=== PATIENT | male | born 1945 | race Caucasian/White ===

== ENCOUNTER 2019-07-02 05:10 | Inpatient (IN) | payer MEDICARE, OTHER, SELFPAY ==
[2019-07-02] VITALS (37 sets, daily range): BP systolic 92–152; BP diastolic 53–112; PULSE 49–90; RESP 8–22; TEMP 36.3–37.1; O2SAT 94–100; BMI 24.0; BMI 23.3
--- NOTE | 2019-07-02 05:18 | EKG12_ITS ---
Test Reason : DYSRHYTHMIA Blood Pressure : / mmHG Vent. Rate : 061 BPM Atrial Rate : 061 BPM P-R Int : 168 ms QRS Dur : 110 ms QT Int : 434 ms P-R-T Axes : -02 -36 051 degrees QTc Int : 436 ms Normal sinus rhythm Left axis deviation Septal infarct , age undetermined Abnormal ECG Confirmed by RICO CROOK, LUZ ([id number]), graphic editor CHRISTEL BELTRE ([id number]) on 07/04/2019 10:30:54 AM Referred By: BB Confirmed By:LUZ GÓMEZ MD
--- NOTE | 2019-07-02 05:18 | RAD_ITS ---
HISTORY: c/o pain across both scapulas nki ADDITIONAL HISTORY: None provided. TECHNIQUE: Frontal chest radiograph. Number of images including paperwork: 1 COMPARISON: 05/02/2016 FINDINGS: LUNGS AND PLEURA: No dense consolidation. Mild interstitial prominence appears similar. No focal consolidation. 7 mm nodular density projects over the right anterior sixth rib near the intersection with a posterior ninth rib. CARDIAC SILHOUETTE: Unremarkable. MEDIASTINUM AND MAIK: Aortic tortuosity. UPPER ABDOMEN: Unremarkable. SKELETON AND SOFT TISSUES: No acute findings. OTHER DEVICES AND HARDWARE: None. RAD/Chest 1 View (Portable) IMPRESSION: No acute cardiopulmonary abnormality. Right lung nodular density may be related to the lung nodule or superimposition. Recommend nonemergent follow-up PA and shallow oblique radiographs for further evaluation. at 0550 Reported and signed by: Andie Christensen MD Electronically Signed: Andie Christensen MD at 5:49 EDT Tel , Service support ,
--- NOTE | 2019-07-02 05:19 | ED.DCSUM_ITS ---
History of Present Illness Chief Complaint: General Illness Detail of Chief Complaint: chest/back pain Informant: Patient, EMS Onset: Hours - 1.5-2 Activity at onset: Sleep - woke him up Timing: Continuous Quality: Aching, Dull Location: Left Chest - Noticed just within the last 30 minutes, - - Initially pain across his upper back/shoulder blades and into both upper arms, worse on the left Current Severity: Mild Maximum Severity: Moderate Worsened By: Nothing. Not Worsened By: Breathing, Coughing Relieved By: - - Better now than it was, he took aspirin 650 mg, unknown if that was the cause of improvement or not Associated Symptoms: Diaphoresis, Lightheadedness - Without near syncope or syncope. Negative for: Nausea, Vomiting, Dyspnea, Cough, Fever, Acid Reflux, Palpitations Narrative: Healthy 74-year-old presenting with discomfort across his upper back and into both upper arms, no worse with moving his arms or chest/torso around. He woke up in a cold sweat as well, and felt relatively poorly. He takes a baby aspirin a day, as a result of waking up with the symptoms he took 2 full aspirins for a total of 650 mg. He called EMS. They transmitted an EKG and transported him to the emergency department where he is feeling improved but the symptoms are still present and he now has discomfort in his left chest as well as the aforementioned areas. He had a stress test years ago that was negative. No known history of heart disease. He is a former smoker, has been a non-smoker for over 50 years. Prior Similar Symptoms: No Recent Illness/Hospitalization: No CVD Risk Factors: Hypercholesterolemia. Negative for: Hypertension, Diabetes, Family History 1' </=55, Smoking PE Risk Factors: Negative for: Recent Travel/Surgery, Recenet Immobilization, Prior DVT or PE, Cancer, OCP + Smoking + >/=35 - Past Medical History (1) Hyperlipidemia Status: Chronic (2) Seasonal allergies Status: Chronic Past Medical History - Allergies and Home Meds Allergies/Adverse Reactions: Allergies amoxicillin Adverse Reaction (Verified 07/02/19 05:11) Rash Primary Care Physician: Luciano Mcfadden [Primary Care Provider] - Lives: Spouse/ Significant Other Smoking Status: Former smoker Drugs: None Review of Systems General: Reports: Malaise, Sweats. Denies: Chills, Fever Eyes: Denies: Visual changes - bilaterally, Diplopia ENT: Denies: Bilateral ear pain, Rhinorrhea, Sore throat Cardiovascular: Reports: Chest pain. Denies: Palpitations Respiratory: Denies: Dyspnea, Cough, Dyspnea on exertion Gastrointestinal: Denies: Abdominal pain, Nausea, Vomiting, Diarrhea, Melena, Hematochezia Genitourinary: Denies: Dysuria, Hematuria, Frequency Musculoskeletal: Reports: Back pain, Extremity Pain. Denies: Neck pain, Swelling Skin: Denies: Rash, Wounds Neurological: Denies: Headache, Weakness, Numbness Physical Exam Vital Signs/Narrative: Vital Signs Temp Pulse Resp BP Pulse Ox 07/02/19 05:19 57 L 152/74 H 07/02/19 05:12 97.4 F L 73 14 146/112 H 97 Inital Vital Signs reviewed: Yes General: Well nourished, Well developed, No Acute Distress Head: Normocephalic, Atraumatic Eyes: Perrl, EOMI ENT: Moist mucous membranes, No rhinorrhea Neck: Supple, Nontender, No lymphadenopathy, No JVD Cardiovascular: Regular rate, Regular rhythm - With occasional ectopy, No murmurs, Normal S1, Normal S2 Respiratory: No distress, CTA bilaterally, Chest nontender Abdomen: Soft, Nontender, Nondistended, Normal bowel sounds Back: Nontender, Normal Inspection Extremities: Nontender, No edema. Negative for: Calf Tenderness Skin: Normal color, No rash, No Trauma Neurological: Alert, Oriented x3, Cranial nerves II-XII grossly intact, Normal Strength, Normal Sensation Psychological: Normal affect, Normal Mood Diagnostic/Tx/Re-eval Impressions Chest X-Ray 07/02/19 05:18 IMPRESSION: No acute cardiopulmonary abnormality. Right lung nodular density may be related to the lung nodule or superimposition. Recommend nonemergent follow-up PA and shallow oblique radiographs for further evaluation. at 0550 Reported and signed by: Andie Christensen MD Electronically Signed: Andie Christensen MD at 5:49 EDT Tel , Service support , 04/14/20 05:18 Chest 1 View (Portable) [RAD] Stat Laboratory Results 07/02/19 07/02/19 07/02/19 06:35 06:35 06:35 WBC 7.4 Corrected WBC RBC 4.49 L Hgb 14.0 Hct 42.1 MCV 93.8 MCH 31.2 MCHC 33.3 RDW Std Deviation 42.5 RDW Coeff of Felicity 12.3 Plt Count 151 MPV 9.4 Immature Gran % (Auto) 0.500 Neut % (Auto) 82.9 H Lymph % (Auto) 10.1 L Pope % (Auto) 5.0 Eos % (Auto) 1.2 Baso % (Auto) 0.3 Absolute Neuts (auto) 6.1 Absolute Lymphs (auto) 0.75 L Total Counted Neutrophils % (Manual) Band Neutrophils % Lymphocytes % (Manual) Monocytes % (Manual) Eosinophils % (Manual) Basophils % (Manual) Metamyelocytes % Myelocytes % Promyelocytes % Blast Cells % Plasma Cell % (Manual) Other Cells % Nucleated RBC % 0 Nucleated RBCs/100 WBC Differential Comment Diff Path Review Hypersegmented Neuts Atypical Lymphocytes Reactive Lymphocytes Smudge Cells Toxic Granulation Toxic Vacuolation Dohle Bodies Sachin Rods Platelet Estimate Plt Morphology Comment RBC Morphology Polychromasia Hypochromasia Poikilocytosis Basophilic Stippling Anisocytosis Microcytosis Macrocytosis Spherocytes Sickle Cells Target Cells Tear Drop Cells Ovalocytes Stomatocytes Ness-Emerson Bodies [place] Cells Bite Cells Crenated Cell Acanthocytes (Spur) Rouleaux Schistocytes APTT 28.3 Sodium 140 Potassium 3.9 Chloride 110 H Carbon Dioxide 25.0 Anion Gap 5 BUN 17 Creatinine 0.88 Estim Creat Clear Calc 76.06 Est GFR (MDRD) Af Amer 108 Est GFR (MDRD) Non-Af 90 BUN/Creatinine Ratio 19.3 Glucose 140 H Calcium 8.6 Troponin I 0.572 H - Rhythm Strip Rhythm Strip: Sinus Rhythm Rate: 60 Ectopy: PAC(s) - EKG EMS EKG Interpretation: Sinus Rhythm, S-T Elevation - 1 mm V1 only with J-point elevation, S-T Depression - 0.5-1 mm V5-V6 only, - - left axis Initial EKG Interpretation: Sinus Rhythm, S-T Elevation - 1 mm V1 only, - - LAD. ST depressions resolved c/w EMS EKG. Prior: No Prior - before today Treatment: Aspirin - taken [employer], Heparin IV, NTG SL, NTG Topical Repeat Eval: 03/29 MARCELLUS Risk: Age >/= 65, ASA within 7 days, Elevated Enzymes, ST Deviation >/= 0.5mm Score: 4 - Medical Decision Making Patient was improved but still symptomatic. He was given a series of 3 nitroglycerin, he had significant improvement down to a 4/10. He stated that the right arm discomfort resolved. All the other symptoms severity diminished. Nitroglycerin paste was placed on his chest, and on reevaluation and another half an hour, his pain was barely noticeable, 03/29. There was some delay due to the first 2 blood samples appearing very diluted according to the catheterization laboratory technician after running the analyzer on them, so it was drawn a third time. His troponin returned elevated at 0.57, and in context of his concerning history this morning, consistent with unstable angina. His EKG is not consistent with a STEMI. We were able to obtain an old EKG through a different computer system, showing none of the ST segment deviations he had this morning, and a normal axis. Today he has a left axis. I discussed with Dr. Cheung with cardiology, who advises starting him on a heparin drip without bolus, loading him with Brilinta 180 mg, and keeping him n.p.o. for likely heart catheterization a little later this morning. Discussed with the patient he is feeling much better, appears clinically and hemodynamically stable with blood pressure currently 101/62, he is mildly bradycardic at 49-50, tolerating it well, IV fluids are going at a gentle rate. Critical care time (excluding procedures): 30-74 minutes - 30 minutes, including time spent discussing with patient and family, consultants, and arranging admission, performing direct patient care at bedside ED Disposition - Plan for ED Patient: Disposition: Acute Care Hospital [facility] Diagnosis: Acute coronary syndrome Referrals: Luciano Mcfadden [Primary Care Provider] -
[2019-07-02] MEDS: 0.9% Normal Saline 1,000 ML 150 ML IV ×2 (05:31→10:47)
[2019-07-02] MEDS: Nitroglycerin SL (ED/IMG/CATH) 0.4 MG TABLET SUBLINGUAL ×3 (05:33→05:44)
[2019-07-02 06:42] LABS: Absolute Lymphocyte Count 0.75 X10^3/uL (0.83-4.51); Absolute Neutrophil Count 6.1 X10^3/uL (2.0-7.7); Basophil# 0.02 X10^3/uL; Basophil% 0.3 % (0-1); Eosinophil# 0.09 X10^3/uL; Eosinophils% 1.2 % (0-5); Hematocrit 42.1 % (40-54); Lymphocyte # 0.75 X10^3/ul (4.0); Lymphocyte % 10.1 % (19-41); Mean Corp Hgb Conc 33.3 g/dL (32-36); Mean Corpuscular Hgb 31.2 pg (27.0-32.0); Mean Corpuscular Volume 93.8 fL (80-94); Mean Platelet Vol. 9.4 fl (6.2-12.0); Monocyte# 0.37 X10^3/uL; NRBC Flagged by Analyzer 0 % (0-5); Neutrophil # 6.14 X10^3/uL (2.7-7.7); Neutrophil % 82.9 % (47-70); Platelet Count 151 K/mm3 (150-450); RBC Distribution Width CV 12.3 % (11.6-14.6); RBC Distribution Width SD 42.5 fl (35.1-43.9); Red Blood Count 4.49 M/mm3 (4.6-6.2); White Blood Count 7.4 K/mm3 (4.4-11.0)
[2019-07-02 06:51] LABS: Partial Thromboplast Time 28.3 Seconds (24.1-36.2)
[2019-07-02 06:59] LABS: Anion Gap 5 (5-15); BUN 17 mg/dL (7-18); BUN/Creat Ratio 19.3 RATIO (10-20); Calcium,Total 8.6 mg/dL (8.5-10.1); Chloride 110 mmol/L (98-107); Creatinine, Serum 0.88 mg/dL (0.70-1.30); EST Glomerular Filtration Rate 90 mL/min (>60); Est Glom Filt Rate - Afr Amer 108 mL/min (>60); Estimated Creatinine Clearance 76.06 ml/min; Glucose 140 mg/dL (74-106); Potassium 3.9 mmol/L (3.5-5.1); Sodium Level 140 mmol/L (136-145)
[2019-07-02] MEDS: Nitroglycerin Oint 1 INCH PACKET 0.5 INCH TRANSDERM. (06:59)
--- NOTE | 2019-07-02 07:00 | ED.RN ---
dr minaya aware of pt's decrease in bp after nitro dose. okay to give nitrobid.
[2019-07-02] MEDS: HEPARIN/D5w 25,000 UNITS 25,000 UNITS/250 ML IV.SOLN. 11 UNITS IV (07:42)
[2019-07-02] MEDS: TICAGRELOR 90 MG TABLET 180 MG PO (07:44)
--- NOTE | 2019-07-02 07:52 | PCM.HP.STD ---
Problem List (1) Acute coronary syndrome Status: Acute (2) Hyperlipidemia Status: Chronic (3) Seasonal allergies Status: Chronic History of Present Illness Date of Admission: 07/02/19 Chief Complaint: interscapular pain today The patient is a 74 year old M with no significant medical history except dyslipidemia on low-dose of simvastatin came to ED with interscapular pain. This started at 3:30 AM and woke him up. Prior to that patient also had headache at midnight as per triage note. This was not associated with shortness of breath, diaphoresis, syncope but patient had acute dizziness during pain. His pain got little bit better with nitro sublingual given in ER. Patient denies prior history of SC or coronary artery disease. In ED, EMS EKG shows slight ST depression V4 to V6 and [address]VL and mild ST elevation in lead V1. This almost resolved in EKG done in ER. EKG normal sinus rhythm with LAD at 61 bpm. Previous EKG of March 2004 normal sinus rhythm. Basic labs done in ER shows troponin 0 0.572, glucose 140. K normal 3.9. Chest x-ray reported no acute cardiopulmonary abnormality. He also reports 7 mm nodular density over right anterior sixth rib near intersection with posterior ninth rib, unclear lung nodule or superimposition. 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 Maternal History Items: Cancer - Skin cancer Review of Systems Constitutional: Denies: Chills, Fever, Weight Change HEENT: Denies: Head Aches, Sinus Congestion, Sinus Drainage Cardiovascular: Reports: Light Headedness, - - Intrascapular pain. Denies: Chest Pain, Chest Pressure, Chest Tightness, Palpitations Respiratory: Denies: Cough, Shortness of breath at rest, Sputum production Gastrointestinal: Denies: Abdominal Pain, Nausea, Vomiting Genitourinary: Denies: Dysuria Musculoskeletal: Denies: Joint Pain, Joint Tenderness Skin: Denies: Rash, Wounds Neurological: Denies: Numbness, Tingling, Focal weakness Psychiatric: Denies: Anxiety, Depression, Homicidal Ideations, Suicidal Ideations Hematologic/ Lymphatic: Denies: Easy Bruising, Easy Bleeding VTE Information - Inpt Only VTE Present on Admission: No VTE Mechan Device Prophylaxis: None VTE Pharm Prophylaxis ordered?: No Reason prophylaxis not ordered:: Procedure Not Indicated - On therapeutic IV heparin drip Patient Problems: Active and Suspected Problems Acute coronary syndrome (Acute) - Physical Exam Vitals/I&O's: Vital Signs Temp Pulse Resp BP Pulse Ox 98.0 F 55 L 14 103/64 96 07/02/19 07:46 07/02/19 07:46 07/02/19 07:46 07/02/19 07:46 07/02/19 07:46 Oxygen Flow Rate (L/min) 2 Oxygen Delivery Method Nasal Cannula Weight: 171 lb 15.369 oz Body Mass Index (BMI) 24.0 General: Alert, Oriented x3, Cooperative HEENT: Atraumatic, PERRLA, EOMI, Normocephalic Oral: No Gingival or Mucosal Lesions/ Ulcerations, Dry Mucosa Neck: Supple, No JVD, Negative Carotid Bruits Lungs: Clear to auscultation, Normal air movement, No rhonchi, No wheeze, No rales Cardiovascular: Regular rate, Regular Rhythm, Normal S1, Normal S2, No murmurs Abdomen: Bowel Sounds Present, Soft, Non Tender, Non-Distended Extremities: No edema, Capillary Refill Less than 3 Seconds Skin: No rashes, No breakdown Musculoskeletal: No Tenderness to Palpation of Joints or Extremities Neurological: Cranial nerves II-XII grossly intact, Deep Tendon Reflexes 2+/4 and Symmetrical, Neuro grossly intact, Motor Exam 5/5 strength throughout Psych/Mental Status: Normal Affect, Appropriate Laboratory Results 07/02/19 05:25: WBC Cancelled, Corrected WBC Cancelled, RBC Cancelled, Hgb Cancelled, Hct Cancelled, MCV Cancelled, MCH Cancelled, MCHC Cancelled, RDW Std Deviation Cancelled, RDW Coeff of Felicity Cancelled, Plt Count Cancelled, MPV Cancelled, Immature Gran % (Auto) Cancelled, Neut % (Auto) Cancelled, Lymph % (Auto) Cancelled, [place] % (Auto) Cancelled, Eos % (Auto) Cancelled, Baso % (Auto) Cancelled, Absolute Neuts (auto) Cancelled, Absolute Lymphs (auto) Cancelled, Total Counted Cancelled, Neutrophils % (Manual) Cancelled, Band Neutrophils % Cancelled, Lymphocytes % (Manual) Cancelled, Monocytes % (Manual) Cancelled, Eosinophils % (Manual) Cancelled, Basophils % (Manual) Cancelled, Metamyelocytes % Cancelled, Myelocytes % Cancelled, Promyelocytes % Cancelled, Blast Cells % Cancelled, Plasma Cell % (Manual) Cancelled, Other Cells % Cancelled, Nucleated RBC % Cancelled, Nucleated RBCs/100 WBC Cancelled, Differential Comment Cancelled, Diff Path Review Cancelled, Hypersegmented Neuts Cancelled, Atypical Lymphocytes Cancelled, Reactive Lymphocytes Cancelled, Smudge Cells Cancelled, Toxic Granulation Cancelled, Toxic Vacuolation Cancelled, Dohle Bodies Cancelled, Sachin Rods Cancelled, Platelet Estimate Cancelled, Plt Morphology Comment Cancelled, RBC Morphology Cancelled, Polychromasia Cancelled, Hypochromasia Cancelled, Poikilocytosis Cancelled, Basophilic Stippling Cancelled, Anisocytosis Cancelled, Microcytosis Cancelled, Macrocytosis Cancelled, Spherocytes Cancelled, Sickle Cells Cancelled, Target Cells Cancelled, Tear Drop Cells Cancelled, Ovalocytes Cancelled, Stomatocytes Cancelled, Ness-[place] Bodies Cancelled, [place] Cells Cancelled, Bite Cells Cancelled, Crenated Cell Cancelled, Acanthocytes (Spur) Cancelled, Rouleaux Cancelled, Schistocytes Cancelled 07/02/19 05:25: Sodium Cancelled, Potassium Cancelled, Chloride Cancelled, Carbon Dioxide Cancelled, Anion Gap Cancelled, BUN Cancelled, Creatinine Cancelled, Estim Creat Clear Calc Cancelled, Est GFR (MDRD) Af Amer Cancelled, Est GFR (MDRD) Non-Af Cancelled, BUN/Creatinine Ratio Cancelled, Glucose Cancelled, Calcium Cancelled, Troponin I Cancelled 07/02/19 05:25: APTT Cancelled 07/02/19 05:50: WBC Cancelled, Corrected WBC Cancelled, RBC Cancelled, Hgb Cancelled, Hct Cancelled, MCV Cancelled, MCH Cancelled, MCHC Cancelled, RDW Std Deviation Cancelled, RDW Coeff of Felicity Cancelled, Plt Count Cancelled, MPV Cancelled, Immature Gran % (Auto) Cancelled, Neut % (Auto) Cancelled, Lymph % (Auto) Cancelled, [place] % (Auto) Cancelled, Eos % (Auto) Cancelled, Baso % (Auto) Cancelled, Absolute Neuts (auto) Cancelled, Absolute Lymphs (auto) Cancelled, Total Counted Cancelled, Neutrophils % (Manual) Cancelled, Band Neutrophils % Cancelled, Lymphocytes % (Manual) Cancelled, Monocytes % (Manual) Cancelled, Eosinophils % (Manual) Cancelled, Basophils % (Manual) Cancelled, Metamyelocytes % Cancelled, Myelocytes % Cancelled, Promyelocytes % Cancelled, Blast Cells % Cancelled, Plasma Cell % (Manual) Cancelled, Other Cells % Cancelled, Nucleated RBC % Cancelled, Nucleated RBCs/100 WBC Cancelled, Differential Comment Cancelled, Diff Path Review Cancelled, Hypersegmented Neuts Cancelled, Atypical Lymphocytes Cancelled, Reactive Lymphocytes Cancelled, Smudge Cells Cancelled, Toxic Granulation Cancelled, Toxic Vacuolation Cancelled, Dohle Bodies Cancelled, Sachin Rods Cancelled, Platelet Estimate Cancelled, Plt Morphology Comment Cancelled, RBC Morphology Cancelled, Polychromasia Cancelled, Hypochromasia Cancelled, Poikilocytosis Cancelled, Basophilic Stippling Cancelled, Anisocytosis Cancelled, Microcytosis Cancelled, Macrocytosis Cancelled, Spherocytes Cancelled, Sickle Cells Cancelled, Target Cells Cancelled, Tear Drop Cells Cancelled, Ovalocytes Cancelled, Stomatocytes Cancelled, Ness-[place] Bodies Cancelled, [place] Cells Cancelled, Bite Cells Cancelled, Crenated Cell Cancelled, Acanthocytes (Spur) Cancelled, Rouleaux Cancelled, Schistocytes Cancelled 07/02/19 05:50: APTT Cancelled 07/02/19 05:50: Sodium Cancelled, Potassium Cancelled, Chloride Cancelled, Carbon Dioxide Cancelled, Anion Gap Cancelled, BUN Cancelled, Creatinine Cancelled, Estim Creat Clear Calc Cancelled, Est GFR (MDRD) Af Amer Cancelled, Est GFR (MDRD) Non-Af Cancelled, BUN/Creatinine Ratio Cancelled, Glucose Cancelled, Calcium Cancelled, Troponin I Cancelled 07/02/19 06:35: Sodium 140, Potassium 3.9, Chloride 110 H, Carbon Dioxide 25.0, Anion Gap 5, BUN 17, Creatinine 0.88, Estim Creat Clear Calc 76.06, Est GFR (MDRD) Af Amer 108, Est GFR (MDRD) Non-Af 90, BUN/Creatinine Ratio 19.3, Glucose 140 H, Calcium 8.6, Troponin I 0.572 H 07/02/19 06:35: WBC 7.4, RBC 4.49 L, Hgb 14.0, Hct 42.1, MCV 93.8, MCH 31.2, MCHC 33.3, RDW Std Deviation 42.5, RDW Coeff of Felicity 12.3, Plt Count 151, MPV 9.4, Immature Gran % (Auto) 0.500, Neut % (Auto) 82.9 H, Lymph % (Auto) 10.1 L, [place] % (Auto) 5.0, Eos % (Auto) 1.2, Baso % (Auto) 0.3, Absolute Neuts (auto) 6.1, Absolute Lymphs (auto) 0.75 L, Nucleated RBC % 0 07/02/19 06:35: APTT 28.3 Current Medications Heparin Sodium (Porcine) (Heparin Na) 0 unit IV UD PRN; Protocol Sodium Chloride () 1,000 mls @ 150 mls/hr IV .[id number] [facility] Last Admin: 07/02/19 05:31 Dose: 150 mls/hr Documented by: Heparin Sodium/Dextrose () 25,000 units in 250 mls @ 11 mls/hr IV .[id number] [facility]; Protocol Last Admin: 07/02/19 07:42 Dose: 1,100 units/hr, 11 mls/hr Documented by: Assessment/Plan All Active Problems Acute coronary syndrome (Acute) The patient is a 74 year old M with no significant medical history except dyslipidemia on low-dose of simvastatin came to ED with interscapular pain. In ED, EMS EKG shows slight ST depression V4 to V6 and 1 in aVL and mild ST elevation in lead V1. This almost resolved in EKG done in ER. EKG normal sinus rhythm with LAD at 61 bpm. Basic labs done in ER shows troponin 0 0.572, glucose 140. K normal 3.9. Chest x-ray reported no acute cardiopulmonary abnormality. 1. Non-STEMI/acute coronary syndrome: Patient is being admitted to PCU on IV heparin drip. Patient had Brilinta 180 mg and aspirin 81 mg daily ordered. Serial troponins. Repeat EKG. Patient is scheduled for cardiac cath today. Started on low-dose of Coreg 3.125 mg twice daily, atorvastatin. Blood pressure is 103/64 therefore not candidate for KAHLIL/ARB. TSH and fasting profile ordered. 2. Suspicion of right lung nodule possible superimposition: Repeat chest x-ray PA and shallow oblique tomorrow a.m. 3. Dyslipidemia: Fasting profile ordered. On atorvastatin 40 mg daily. 4. Seasonal allergy: Controlled. Home medication Nasonex nasal spray continued. DVT prophylaxis: Patient on IV heparin drip. Living will/advanced directive/end of life care: Patient does have living will or advanced directive. After discussion of procedures involved with full code, DNR CC arrest and DNR CC, the patient opted for DNR-CC Arrest Patient does not want artificial life support including intubation, tube feed, ventilator and/chest compression, central venous catheter, vasopressor and DC shock if needed DNR CC arrest; no intubation. Total time spent in [id number] encounter in discussion of advanced directive 16 minutes. [Clinical Impression(s) from Imaging Studies Chest X-Ray 07/02/19 05:18 IMPRESSION: No acute cardiopulmonary abnormality. Right lung nodular density may be related to the lung nodule or superimposition. Recommend nonemergent follow-up PA and shallow oblique radiographs for further evaluation. Inpatient E&M: 51248 Init Hosp L3 Procedures: 94628 Advncd Care Plan 30 Min
--- NOTE | 2019-07-02 08:07 | EKG12_ITS ---
Test Reason : CP ADMISSION Blood Pressure : / mmHG Vent. Rate : 057 BPM Atrial Rate : 057 BPM P-R Int : 174 ms QRS Dur : 098 ms QT Int : 434 ms P-R-T Axes : -06 -44 014 degrees QTc Int : 422 ms Sinus bradycardia Left axis deviation Anteroseptal infarct , possibly acute Abnormal ECG When compared with ECG of 02-JUL-2019 05:18, MANUAL COMPARISON REQUIRED, DATA IS UNCONFIRMED Confirmed by CARLOS ALBERTO HOUSTON ([id number]), market editor CHRISTEL BELTRE ([id number]) on 07/04/2019 10:32:45 AM Referred By: DARREN Confirmed By:CARLOS ALBERTO HOUSTON
[2019-07-02 08:27] LABS: Cholesterol 136 mg/dL (200); High Density Lipoprotein 43 mg/dL; Magnesium 2.3 mg/dL (1.6-2.6); Triglycerides 72 mg/dL; Very Low Density Lipoprotein 14 mg/dL (5-40)
--- NOTE | 2019-07-02 08:39 | PCM.CONS.C ---
Problem List (1) NSTEMI (non-ST elevated myocardial infarction) Status: Acute (2) HLD (hyperlipidemia) Status: Acute Reason for Consult Date of Consultation: 07/02/19 History of Present Illness: The patient is a 74 year old white male with past medical history of hyperlipidemia who presents for evaluation of coronary syndrome/non-ST segment elevation MO. To the best of his knowledge he has no radial vascular history other than his hyperlipidemia. He has been on medical therapy for his hyperlipidemia. He states he was doing well until approximately night. Headache. He states he took a nonsteroidal anti-inflammatory agent and return to sleep. He awoke at 3 AM arm discomfort radiating across his back. He became diaphoretic. Again he took additional nonsteroidal anti-inflammatory agent and attempted to sleep. However he stated the symptoms persisted. He summoned the EMS. ECG was performed which demonstrated sinus rhythm with a possible left anterior fascicular block possible septal MO of in the age, subtle ST segment changes in the lateral distribution. He was treated with nitroglycerin sublingual again some improvement of his symptoms. He subsequently is brought to the emergency department. There he was evaluated and found to have a borderline positive troponin I level. A repeat ECG was formed which demonstrated similar type changes with the exception of his previous subtle ST segment changes appearing to return to baseline. He noted still some residual left arm discomfort. He was again treated with nitroglycerin sublingual and nitroglycerin paste. He had improvement of his symptoms. He underwent radiologic studies with chest x-ray which demonstrated no acute cardiopulmonary findings on preliminary inspection. His laboratory studies were reviewed with no additional acute changes. He was subsequently treated with additional medical therapy with Brilinta and placed on IV heparin (no bolus) with anticipation for cardiovascular referral to the cardiac catheterization laboratory. Upon evaluation he stated he was feeling better although he does recall male having still some residual vague left arm discomfort some intermittent left chest discomfort. He denied any shortness of breath/dyspnea, nausea, or emesis. He has not had any history of orthopnea, PND, peripheral pitting edema. There is been no report of near syncope or syncope. He states he has been otherwise healthy and active. He states he has been remaining home based upon the coronavirus pandemic. He denies any fever, cough, fatigue, etc. this time. [] Past Medical History Allergies/Adverse Reactions: Allergies amoxicillin Allergy (Verified 07/02/19 08:20) Rash Home Medications: Ambulatory Orders Medication Instructions Recorded Aspirin [Aspirin, Baby] 81 mg PO DAILY@0800 05/02/16 Simvastatin [Zocor] 10 mg PO DAILY 05/02/16 Mometasone Furoate [Nasonex] 2 spray NASAL DAILY 07/02/19 Past Medical History (Chronic Problems): Chronic Problems Hyperlipidemia (Chronic) Seasonal allergies (Chronic) - *Family History Paternal History Items: Cancer - Esophageal cancer in his 70s. Maternal History Items: Cancer - Skin cancer Lives: Spouse/ Significant Other Smoking Status: Former smoker Tobacco Use: - - Smoke few cigarettes immunostain for few years Alcohol: Occasional - About 6 drinks in 1 year Drugs: None Review of Systems - Review of Systems General: Denies: Fever, Night Sweats, Fatigue Cardiovascular: Reports: Chest Discomfort, - - Diaphoresis. Denies: Shortness of Breath, Orthopnea, PND, Peripheral Edema, Palpitations, Lightheadedness, Dizziness, Near Syncope, Syncope Respiratory: Denies: Cough, Sputum Production, Hemoptysis Gastrointestinal: Denies: Hematemesis, Hematochezia, Melena Genitourinary: Denies: Dysuria, Hematuria Skin: Denies: Rash Subjectve: This is a pleasant 74-year-old white male who appears to be resting reasonably comfortably at the moment in no acute distress. Objective: Vital Signs Temp Pulse Resp BP Pulse Ox 97.8 F 55 L 18 118/69 100 07/02/19 08:31 07/02/19 08:31 07/02/19 08:31 07/02/19 08:31 07/02/19 08:31 Oxygen Flow Rate (L/min) 2 Oxygen Delivery Method Room Air Weight: 167 lb 3.2 oz Body Mass Index (BMI) 23.3 Intake and Output for Last 24 Hours 06/30/19 07/01/19 07/02/19 23:59 23:59 23:59 Intake Total 437.5 / 437.5 Balance 437.5 / 437.5 General: Awake, Alert, Oriented x 3, Cooperative, No Acute Distress HEENT: Atraumatic, Normocephalic, PERRL, EOMI, Sclera Non Icteric Oral: Moist Mucosa Neck: Supple, Good ROM, No JVD Lungs: Clear to auscultation Cardiovascular: Regular Rhythm, Normal S1, Normal S2 Vascular: No Carotid Bruits Abdomen: Bowel Sounds Present, Soft, Non Tender Extremities: No Cyanosis, No Clubbing, No edema Neurological: No Focal Motor or Sensory Deficit Psych/Mental Status: Appropriate 07/02/19 05:25: WBC Cancelled, Corrected WBC Cancelled, RBC Cancelled, Hgb Cancelled, Hct Cancelled, MCV Cancelled, MCH Cancelled, MCHC Cancelled, Plt Count Cancelled, MPV Cancelled, Immature Gran % (Auto) Cancelled, Neut % (Auto) Cancelled, Lymph % (Auto) Cancelled, [place] % (Auto) Cancelled, Eos % (Auto) Cancelled, Baso % (Auto) Cancelled, Absolute Neuts (auto) Cancelled, Total Counted Cancelled, Neutrophils % (Manual) Cancelled, Band Neutrophils % Cancelled, Lymphocytes % (Manual) Cancelled, Monocytes % (Manual) Cancelled, Eosinophils % (Manual) Cancelled, Basophils % (Manual) Cancelled, Metamyelocytes % Cancelled, Myelocytes % Cancelled, Promyelocytes % Cancelled, Blast Cells % Cancelled, Plasma Cell % (Manual) Cancelled, Other Cells % Cancelled, Nucleated RBC % Cancelled 07/02/19 05:25: Sodium Cancelled, Potassium Cancelled, Chloride Cancelled, Carbon Dioxide Cancelled, Anion Gap Cancelled, BUN Cancelled, Creatinine Cancelled, Est GFR (MDRD) Af Amer Cancelled, Est GFR (MDRD) Non-Af Cancelled, BUN/Creatinine Ratio Cancelled, Glucose Cancelled, Calcium Cancelled, Troponin I Cancelled 07/02/19 05:25: APTT Cancelled 07/02/19 05:50: WBC Cancelled, Corrected WBC Cancelled, RBC Cancelled, Hgb Cancelled, Hct Cancelled, MCV Cancelled, MCH Cancelled, MCHC Cancelled, Plt Count Cancelled, MPV Cancelled, Immature Gran % (Auto) Cancelled, Neut % (Auto) Cancelled, Lymph % (Auto) Cancelled, [place] % (Auto) Cancelled, Eos % (Auto) Cancelled, Baso % (Auto) Cancelled, Absolute Neuts (auto) Cancelled, Total Counted Cancelled, Neutrophils % (Manual) Cancelled, Band Neutrophils % Cancelled, Lymphocytes % (Manual) Cancelled, Monocytes % (Manual) Cancelled, Eosinophils % (Manual) Cancelled, Basophils % (Manual) Cancelled, Metamyelocytes % Cancelled, Myelocytes % Cancelled, Promyelocytes % Cancelled, Blast Cells % Cancelled, Plasma Cell % (Manual) Cancelled, Other Cells % Cancelled, Nucleated RBC % Cancelled 07/02/19 05:50: APTT Cancelled 07/02/19 05:50: Sodium Cancelled, Potassium Cancelled, Chloride Cancelled, Carbon Dioxide Cancelled, Anion Gap Cancelled, BUN Cancelled, Creatinine Cancelled, Est GFR (MDRD) Af Amer Cancelled, Est GFR (MDRD) Non-Af Cancelled, BUN/Creatinine Ratio Cancelled, Glucose Cancelled, Calcium Cancelled, Troponin I Cancelled 07/02/19 06:35: Sodium 140, Potassium 3.9, Chloride 110 H, Carbon Dioxide 25.0, Anion Gap 5, BUN 17, Creatinine 0.88, Est GFR (MDRD) Af Amer 108, Est GFR (MDRD) Non-Af 90, BUN/Creatinine Ratio 19.3, Glucose 140 H, Calcium 8.6, Troponin I 0.572 H 07/02/19 06:35: WBC 7.4, RBC 4.49 L, Hgb 14.0, Hct 42.1, MCV 93.8, MCH 31.2, MCHC 33.3, Plt Count 151, MPV 9.4, Immature Gran % (Auto) 0.500, Neut % (Auto) 82.9 H, Lymph % (Auto) 10.1 L, [place] % (Auto) 5.0, Eos % (Auto) 1.2, Baso % (Auto) 0.3, Absolute Neuts (auto) 6.1, Nucleated RBC % 0 07/02/19 06:35: APTT 28.3 07/02/19 06:35: Magnesium 2.3, Triglycerides 72, Cholesterol 136, LDL Cholesterol 79, VLDL Cholesterol 14, HDL Cholesterol 43 Rhythm: Sinus rhythm EKG: As noted above CXR: As noted above Assessment/Plan 1. Acute non-ST segment elevation MO The patient presents with symptoms, abnormal troponin I levels, and an abnormal ECG concerning for an acute non-ST segment elevation MO. He has been treated medically. He has had some improvement of his symptoms. He still comments on some residual left arm discomfort. At the present time he will continue medical therapy. He has received antiplatelet therapy and anticoagulant therapy. He will receive additional medical therapy as deemed appropriate. He has been recommended for further evaluation in the cardiac catheterization laboratory. The procedure and risks have been discussed with him. He was agreeable to this approach. 2. Hyperlipidemia The patient states he has a history of hyperlipidemia. He has been on medical management. His lipids can be evaluated and his medications can be adjusted as deemed appropriate. Comment: The patient's case has been discussed and reviewed with patient and Dr. Souza of the [facility] emergency department staff. This note was generated using a voice recognition system and there may be incorrect words, spelling or punctuation that were not noted when reviewing the office note prior to saving. Essential Procedure Criteria Procedure Essential: Yes Criteria Note: On 06/04/2019 the [place] Department of Health ([facility]) Public Order signed by [facility] Director Jaz Quiñones M.D., regarding the Management of Non-Essential Surgeries and Procedures for the purpose of preserving Personal Protective Equipment (PPE) and critical hospital capacity and resources within [place] went into effect as of 06/05/2019 at 5:00PM. According to the [facility] Public Order: This action will remain in full force and effect until the State of Emergency declared by the Governor no longer exists or the Director of the [facility] rescinds or modifies this Order.. This [facility] order stated all non-essential or elective surgeries and procedures that utilize PPE should be delayed unless there is undue risk to the current or future health of a patient. After reviewing the aforementioned [facility] Public Order and the patients clinical case, I have determined that the scheduled procedure meets the criteria to go forward. Risk to Patient if Procedure Delayed: Threat of permanent dysfunction of an extremity or organ system - Acute non-ST segment elevation MO
[2019-07-02] MEDS: Aspirin E.C. 81 MG Tablet PO (08:43)
[2019-07-02] MEDS: 0.9% Normal Saline 1,000 ML 75 ML IV (08:44)
--- NOTE | 2019-07-02 08:50 | NURSING ---
This RN called and gave report to Tamica Marques RN.
--- NOTE | 2019-07-02 09:53 | ECHOCS_ITS ---
Reason For Study: S/P AK Procedure This was a 2D Doppler, Color Flow transthoracic echocardiogram. Exam performed supine due to S/P heart cath. The study was technically difficult. Contrast injection was performed. Exam performed portable in ICU/CCU. Left Ventricle Normal LV size. Apical false tendon noted. Mild segmental systolic dysfunction (see wall motion). The estimated ejection fraction is 45 %. No evidence for diastolic dysfunction. Mid-inferoseptal : Hypokinetic. Mid-anteroseptal : Akinetic. [place] : Akinetic. Right Ventricle Normal RV size. Normal systolic function. Atria Normal left atrium. Normal right atrium. No doppler evidence for ASD. Mitral Valve There is no mitral annular calcification. Normal mitral valve. Trivial mitral valve insufficiency. Tricuspid Valve Normal tricuspid valve. Trivial tricuspid valve insufficiency. Right ventricular systolic pressure estimated to be 31 mmHg. Aortic Valve Trisinus/trileaflet aortic valve. Mild focal aortic valve thickening. Pulmonic Valve The pulmonic valve is not well visualized. Great Vessels Normal sized aortic root. Pericardium/Pleural No pericardial effusion. Medication Diluted definity 2.0ml given slow IV push to enhance endocardial definition. MMode/2D Measurements & Calculations LVIDd: 4.4 cm IVSd: 0.96 cm Ao root diam: 3.1 cm LVIDs: 3.3 cm LVPWd: 0.84 cm RVDd: 3.0 cm FS: 25.7 % LAV(MOD-bp): 57.3 ml LA A4 area: 19.9 cm2 LA dimension(2D): 2.9 cm LAV(MOD-bp) Indexed: 29.1 ml/m2 LAV(MOD-sp2): 54.5 ml LAV(MOD-sp4): 58.1 ml RA A4 area: 14.1 cm2 Time Measurements MV dec time: 0.25 sec Doppler Measurements & Calculations MV E max declan: 57.1 cm/sec Lat Peak E' Declan: 5.3 cm/sec Med Peak E' Declan: 7.8 cm/sec MV A max declan: 69.3 cm/sec E/E' lat: 10.8 E/E' med: 7.3 MV E/A: 0.82 Ao V2 max: 110.8 cm/sec LV V1 max: 69.4 cm/sec PA V2 max: 58.7 cm/sec Ao max P.9 mmHg LV V1 max P.9 mmHg TR max declan: 263.7 cm/sec TR max P.0 mmHg Interpretation Summary The study was technically difficult. Contrast injection was performed. Mild segmental systolic dysfunction (see wall motion). The estimated ejection fraction is 45 %. Apical false tendon noted. Trivial mitral valve insufficiency. Trivial tricuspid valve insufficiency. Mild focal aortic valve thickening. Right ventricular systolic pressure estimated to be 31 mmHg. No evidence for diastolic dysfunction. Ordering Physician: Perez Cheung Referring Physician: Hunter Mcfadden Performed By: Neeru Rao, DAVID, RVT
--- NOTE | 2019-07-02 10:23 | CL.I_ITS ---
Patient Name: FRANK BELTRE Study Date: 07/02/2019 Performing: Lebron Treadwell MD Ht: 70.86 inches 180 cm : 1945 Wt: 167.55 lbs 76 kg Age: 74 Gender: male BSA: 1.95 PROCEDURE(S) PERFORMED [id number] W OR WO PTCA, SINGLE CORONARY ARTERY CLINICAL PROFILE AND CO-MORBIDITIES Patient presents with NSTEMI for urgent cardiac cath Indications: ACS <= 24 hrs, ACS <= 24 hrs, Suspected CAD Heart Failure: NYHA Class: 1, Newly Diagnosed: Yes, Heart Failure Type: Systolic Stress/Imaging Stress/Image Study Performed: No Angina Classification Anginal Classification w/in 2 Weeks: CCS IV CAD Presentations: Non-STEMI. Non-STEMI. Unstable angina. Non-STEMI. Symptom onset Date/Time: 05/18 Time Not Available Comorbidities/Risk Factors: Dyslipidemia CONCLUSIONS Successful PTCA/STONE heparin/brilinta assisted PCI of mid LAD with Dresden assistance, utilizing a 2.5 x 24 Promus Synergy, post dilated proximally with a 3.0 x 8 NC balloon; 99%-->0%, no dissection. RECOMMENDATIONS Highly recommend quitting all tobacco products Follow up with primary rug cleaning supervisor Risk factor modification ASA Indefinitley Plavix for at least 12 months Routine post interventional care Refer for Outpatient Cardiac Rehab Manual sheath removal per protocol Follow up with Dr. Cheung Manual sheath removal as pt is too thin for Mynx closure. DESCRIPTION OF PROCEDURE The patient arrived to the procedure lab. The risks and benefits of the procedure as well as a full d escription of our services here and current unavailability of surgical backup were fully explained to the patient and/or their significant other prior to the catheterization. The Timeout was completed, verifying the correct patient and procedure. The patient's procedural site was prepped and draped in the usual fashion. Local anesthetic was given subcutaneously to right groin region with Lidocaine 2% Using a modified Seldinger technique,arterial access was obtained via the right femoral artery, a 4Fr sheath was inserted Left Coronary Artery selective angiography was performed in multiple views using a 4 Fr. JL5 catheter. Right Coronary Artery selective angiography was then performed in multiple vie ws using a 4 Fr. 3DRC catheter. Left Ventriculography was performed in [place]BAR[place]O projection using a 4 Fr. P igtail catheter. LV to AO pullback pressures were then recorded.The images were reviewed and options discussed. A decision was then made to proceed with an Intervention, IVUS or other adjunc t procedure. Arterial sheath was exchanged for a 6 Fr Sheath. EBU 3.75 Guide catheter was inserted and engaged into the LCA. Runthrough Guide wire was advanced to the LAD. Dresden AP inserted Pass # 1 Dresden AP R emoved 2.0x12 Emerge Balloon catheter was advanced across lesion in the LAD, mid. Angiogram performed pre balloon dilatation. PTCA balloon inflated at 6 atms for 10 secs. PTCA balloon inflated at 6 atms for 10 secs. Dresden AP inserted Pass # 2 Dresden AP Removed Angiogram performed. Dresden AP inserted P ass # 3 Dresden AP Removed 2.5x24 Synergy Drug Eluting stent was advanced across the lesion in the LAD , mid. Angiogram performed pre stent deployment. Angiogram performed post stent deployment. 3.0x8 NC Emerge Balloon catheter was inserted post stent. PTCA balloon inflated at 12 atms for 12 secs. PTCA b alloon inflated at 14 atms for 10 secs. Angiogram performed. The arterial sheath was sutured in katlyn ce and capped INTERVENTION INFORMATION LESION SITE: LAD (Mid) Lesion Complexity: High/C, thrombus present: Yes, lesion at bifurcation: No, thrombus present: Yes, l esion length: 24 mm, culprit lesion: Yes Pre Stenosis: 99 % Pre intervention MARCELLUS flow: 1 PROCEDURE: Drug Eluting Stent with pre and post dilatation, Thrombectomy Post Stenosis: 0 % Post intervention MARCELLUS flow: 3 Lesion Devices: Terumo .014 Runthrough Extra Floppy 180cm straight Medtronic 6 Fr EBU3.75 100cm Guide Catheter Kike Sci EMERGE MR 2.00x12 BALLOON Medtronic 6 Fr. Dresden AP Aspiration Catheter Kike Sci Synergy MR STONE 2.50x24 Kike Sci NC EMERGE MR 3.00x08 BALLOON COMPLICATIONS No Complications PROCEDURE MEDICATIONS Versed 1 mg IV Oxygen: 2 L/min via nasal cannula Heparin drip turned off per Jonatan and Eben ^FreeChano^ 07/02/2019 09:39:04 Heparin 6000 unit(s) IV 07/02/2019 09:42:18 Heparin 4000 unit(s) IV 07/02/2019 10:14:37 Nitro 200 mcg IC 07/02/2019 09:52:05 Nitro 200 mcg IC 07/02/2019 09:52:05 IV Bolus: .9 NaCl 700 ml total was completed 07/02/2019 10:13:31 IV Fluids: .9 NaCl increased to wide open ml/hr 07/02/2019 09:32:12 IV Fluids: .9 NaCl decreased to kvo ml/hr 07/02/2019 10:13:54 SUMMARY OF HEMODYNAMIC DATA Time AIR REST ECG 09:13:24 AO 96/58 (77) SA 09:30:49 LV 119/3, 27 09:37:00 LV 116/-1, 28 09:37:06 LV 124/-7, 25 09:38:16 LVp 115/-6, 26 09:38:22 AOp 122/63 (91) 09:38:27 AO 101/52 (72) 10:00:56 Signed By Lebron Treadwell MD On 07/02/2019 10:23:04 Lebron Treadwell MD
[2019-07-02 10:31] LABS: ACT Activated Clotting Time 208 sec (74-137)
--- NOTE | 2019-07-02 10:33 | EKG12_ITS ---
Test Reason : POST PCI Blood Pressure : / mmHG Vent. Rate : 055 BPM Atrial Rate : 055 BPM P-R Int : 174 ms QRS Dur : 098 ms QT Int : 448 ms P-R-T Axes : -13 -51 -25 degrees QTc Int : 428 ms Sinus bradycardia Left anterior fascicular block Septal infarct , age undetermined Abnormal ECG When compared with ECG of 02-JUL-2019 08:35, MANUAL COMPARISON REQUIRED, DATA IS UNCONFIRMED Confirmed by CARLOS ALBERTO HOUSTON ([id number]), editor in chief newspaper CHRISTEL BELTRE ([id number]) on 07/04/2019 10:35:19 AM Referred By: RICO Confirmed By:CARLOS ALBERTO HOUSTON
--- NOTE | 2019-07-02 13:09 | CRPHASE1 ---
Patient Communication PHII Cardiac Rehab Discussed with Patient:: Yes Guide to Cardiac Rehab Given to Patient:: Yes Cardiac Rehab Facility Choice List Given to Patient:: Yes - chooses [facility] Choice Program [facility] CR PHII:: Communication Given to CR, Refer to [facility] Loom Blower:: Lebron Treadwell Phase II Cardiac Rehab:: Yes Sessions:: 36 sessions - 3 days/wk, 12 weeks Risk Factors/Lifestyle Smoking Status: Former smoker Hx Dyslipidemia: Yes Height: 5 ft 11 in Weight:: 75.84 kg BMI: 23.3 Laboratory Values: Cardiac Rehab Phase I Labs Triglycerides 72 mg/dL (-199) 07/02/19 06:35 Cholesterol 136 mg/dL (200) 07/02/19 06:35 LDL Cholesterol 79 mg/dL (0-130) 07/02/19 06:35 HDL Cholesterol 43 mg/dL (40-) 07/02/19 06:35 Phase I Education Given On:: [place], Nutrition, Antiplatelet medication, CHF, Smoking cessation, Diabetes - Type I, Diabetes - Type II Issues Affecting Care:: None Knowledge of Condition:: Yes Hospital Course Cardiac Cath Date:: 07/02/19 Medical/Surgical History Dyslipidemia:: Yes Cardiac Rehabilitation Info Cardiac Rehabilitation Program Information: Cardiac Rehabilitation is important for patients like you who are recovering from a heart problem. Cardiac rehabilitation programs are recognized as integral to the continued care of the patient with coronary heart disease. The cardiac rehabilitation program is designed to optimize a patient's physical, psychological, and social functioning. Health resident care director work in cardiac rehabilitation programs and assist you with getting the treatments you need to get stronger and healthier - like exercise, healthy eating habits, and medications. Cardiac rehabilitation has been show to help people with heart problems live longer and have better life enjoyment than people who do not go to cardiac rehabilitation. Please contact the Cardiac Rehabilitation Program at [facility] at in two weeks if you have not heard from them.
--- NOTE | 2019-07-02 13:12 | CRPH1.INSTRU ---
General Education CAD and cardiac anatomy and function:: Patient communicates acknowledgment Explanation of diagnoses and procedures:: Patient communicates acknowledgment Sign/Symptoms of KS:: Patient communicates acknowledgment Antiplatelet therapy: Patient communicates acknowledgment Proper use of NTG-SL: Not instructed Emergency procedures and activation of EMS: Patient communicates acknowledgment Compliance of all prescribed medications: Patient communicates acknowledgment Smoking Nicotine/Smoking Response Code:: Patient communicates acknowledgment Dyslipidemia Dyslipidemia Response Code:: Patient communicates acknowledgment Overweight/Obesity Patient Overweight/Obesity Risk Factors Are:: BMI Normal [18-25 & < 65 years old] Overweight/Obesity:: Patient communicates acknowledgment Hypertension Patient Hypertension Risk Factors Are:: No documented hx of HTN Hypertension:: Patient communicates acknowledgment Heart Disease Heart Disease Response Code:: Patient communicates acknowledgment Diabetes Patient Diabetes Risk Factors Are:: No documented hx of diabetes Diabetes:: Patient communicates acknowledgment Metabolic Syndrome Metabolic Syndrome Response Code:: Patient communicates acknowledgment Sedentary Sedentary Response Code:: Patient communicates acknowledgment Stress Stress Response Code:: Patient communicates acknowledgment
[2019-07-02 13:35] LABS: ACT Activated Clotting Time 186 sec (74-137)
[2019-07-02 13:35] LABS: ACT Activated Clotting Time 164 sec (74-137)
--- NOTE | 2019-07-02 16:00 | CL.D_ITS ---
Patient Name: FRANK BELTRE Study Date: 07/02/2019 Performing: Perez Cheung MD Ht: 70.87 inches 180 cm : 1945 Wt: 167.55 lbs 76 kg Age: 74 Gender: male BSA: 1.95 PROCEDURE(S) PERFORMED [id number]/COR/LV [id number] W OR WO PTCA, SINGLE CORONARY ARTERY CLINICAL PROFILE AND INDICATIONS Patient presents with NSTEMI for urgent cardiac cath Indications: ACS <= 24 hrs, ACS <= 24 hrs, Suspected CAD Heart Failure: NYHA Class: 1, Newly Diagnosed: Yes, Heart Failure Type: Systolic Stress/Imaging Stress/Image Study Performed: No Angina Classification Anginal Classification w/in 2 Weeks: CCS IV CAD Presentations: Non-STEMI. Non-STEMI. Unstable angina. Non-STEMI. Symptom onset Date/Time: 05/18 Time Not Available Comorbidities/Risk Factors: Dyslipidemia CONCLUSIONS Elevated Left Ventricular End Diastolic Pressure LVEF: by LV gram 40 % [place] Multivessel CAD RECOMMENDATIONS Risk factor modification Medical therapy Referred for immediate PCI DESCRIPTION OF PROCEDURE The patient arrived to the procedure lab. The risks and benefits of the procedure as well as a full d escription of our services here and current unavailability of surgical backup were fully explained to the patient and/or their significant other prior to the catheterization. The Timeout was completed, verifying the correct patient and procedure. The patient's procedural site was prepped and draped in the usual fashion. Local anesthetic was given subcutaneously to right groin region with Lidocaine 2%. Using a modified Seldinger technique, arterial access was obtained via the right femoral artery, a 4 Fr sheath was inserted Left Coronary Artery selective angiography was performed in multiple views us ing a 4 Fr. JL5 catheter. Right Coronary Artery selective angiography was then performed in multiple views using a 4 Fr. 3DRC catheter. Left Ventriculography was performed in [place] projection using a 4 Fr . Pigtail catheter. LV to AO pullback pressures were then recorded.The arterial sheath was sutured in place and capped CORONARY ANGIOGRAPHY DOMINANCE: Left Dominant LEFT HEART ASSESSMENT Left Ventricular Ejection Fraction: by LV Gram 40 % Anterior Hypokinesis. [place]: Akinetic Elevated Left Ventricular End Diastolic Pressure LVEDP: 28 mmHg LEFT MAIN: Angiographically normal LEFT ANTERIOR DESCENDING ARTERY: PROX LAD: eccentric: 25 % Stenosis MID LAD: subtotal occlusion with the mid - distal LAD filling late and faintily CIRCUMFLEX ARTERY: PROX CIRC: Mild calcification (eccentric) DISTAL CIRC: Mild luminal irregularities OM 2: Proximal - Mild luminal irregularities (small caliber vessel) RIGHT CORONARY ARTERY: Mild luminal irregularities AORTIC ROOT: Angiographically normal COMPLICATIONS No Complications PROCEDURE MEDICATIONS Versed 1 mg IV Oxygen: 2 L/min via nasal cannula Heparin drip turned off per Jonatan and Treadwell ^FreeText^ 07/02/2019 09:39:04 Heparin 6000 unit(s) IV 07/02/2019 09:42:18 Heparin 4000 unit(s) IV 07/02/2019 10:14:37 Nitro 200 mcg IC 07/02/2019 09:52:05 Nitro 200 mcg IC 07/02/2019 09:52:05 IV Bolus: .9 NaCl 700 ml total was completed 07/02/2019 10:13:31 IV Fluids: .9 NaCl increased to wide open ml/hr 07/02/2019 09:32:12 IV Fluids: .9 NaCl decreased to kvo ml/hr 07/02/2019 10:13:54 SUMMARY OF HEMODYNAMIC DATA Time AIR REST ECG 09:13:24 AO 96/58 (77) SA 09:30:49 LV 119/3, 27 09:37:00 LV 116/-1, 28 09:37:06 LV 124/-7, 25 09:38:16 LVp 115/-6, 26 09:38:22 AOp 122/63 (91) 09:38:27 AO 101/52 (72) 10:00:56 Signed By Perez Cheung MD On 07/02/2019 4:02:27 PM Signed By Perez Cheung MD On 07/02/2019 3:59:23 PM Perez Cheung MD
[2019-07-02] MEDS: Carvedilol 3.125 MG TABLET PO (21:10)
[2019-07-02] MEDS: Famotidine 20 MG Tablet PO (21:10)
[2019-07-02] MEDS: Atorvastatin Calcium 80 MG Tablet PO (21:10)
[2019-07-02] MEDS: TICAGRELOR 90 MG TABLET PO (21:19)
[2019-07-03] VITALS (16 sets, daily range): BP systolic 88–107; BP diastolic 46–61; PULSE 59–81; RESP 14–18; TEMP 36.8–37.1; O2SAT 96–99
[2019-07-03 04:25] LABS: Absolute Lymphocyte Count 1.27 X10^3/uL (0.83-4.51); Absolute Neutrophil Count 5.9 X10^3/uL (2.0-7.7); Basophil# 0.02 X10^3/uL; Basophil% 0.3 % (0-1); Eosinophil# 0.15 X10^3/uL; Eosinophils% 1.9 % (0-5); Hematocrit 43.5 % (40-54); Hemoglobin 14.6 g/dL (13.0-16.5); Lymphocyte # 1.27 X10^3/ul (4.0); Lymphocyte % 15.9 % (19-41); Mean Corp Hgb Conc 33.6 g/dL (32-36); Mean Corpuscular Hgb 30.9 pg (27.0-32.0); Mean Corpuscular Volume 92.2 fL (80-94); Mean Platelet Vol. 9.5 fl (6.2-12.0); Monocyte# 0.67 X10^3/uL; Monocyte% 8.4 % (0-10); NRBC Flagged by Analyzer 0 % (0-5); Neutrophil # 5.85 X10^3/uL (2.7-7.7); Neutrophil % 73.1 % (47-70); Platelet Count 158 K/mm3 (150-450); RBC Distribution Width CV 12.8 % (11.6-14.6); RBC Distribution Width SD 42.9 fl (35.1-43.9); Red Blood Count 4.72 M/mm3 (4.6-6.2)
[2019-07-03 04:57] LABS: ALB/GLOB Ratio 1.1 RATIO (0.9-2.4); AST(SGOT) 112 U/L (15-37); Alanine Aminotransfer ALT/SGPT 29 U/L (16-61); Albumin, Serum 3.4 g/dL (3.2-5.0); Alkaline Phosphatase 52 U/L (45-117); Anion Gap 7 (5-15); BUN 9 mg/dL (7-18); Calcium,Total 8.1 mg/dL (8.5-10.1); Chloride 112 mmol/L (98-107); Creatinine, Serum 0.82 mg/dL (0.70-1.30); EST Glomerular Filtration Rate 97 mL/min (>60); Est Glom Filt Rate - Afr Amer 118 mL/min (>60); Estimated Creatinine Clearance 81.63 ml/min; Globulin 3.2 g/dL (2.2-4.2); Glucose 119 mg/dL (74-106); Potassium 3.9 mmol/L (3.5-5.1); Protein, Total 6.6 g/dL (6.4-8.2); Sodium Level 141 mmol/L (136-145); Thyroid Stim Hormone (TSH) 1.36 uIU/mL (0.358-3.74)
--- NOTE | 2019-07-03 05:55 | RAD_ITS ---
STUDY: X-RAY CHEST REASON FOR EXAM: Male, 74 years old. Suspicion of rt lung nodule -- per report of PCXR 07/02/19- radiologist recommended PA and shallow oblique views of chest TECHNIQUE: PA and shallow oblique views of the chest were obtained. COMPARISON: Comparison is made with prior examination in July 02, 2019. FINDINGS: The nodular density most likely represents a right nipple shadow. The remainder of the examination is unchanged. There is no demonstrated pleural abnormality. Normal size heart. Normal mediastinum and belkys. Normal visualized pulmonary arteries. There is atherosclerotic calcification of the aortic arch with tortuosity. Normal visualized thoracic spine. Normal visualized ribs, clavicles, and shoulders. There is no demonstrated abnormality of the visualized soft tissue structures of the upper abdomen. RAD/Chest 3 View IMPRESSION: No acute adenopathy is seen. Electronically Signed: Austin Vaca, at 7:51 EDT , Service support ,
--- NOTE | 2019-07-03 08:37 | PCM.PN.HOSP ---
Patient Problems: Active and Suspected Problems (Last Updated 07/02/19 @ 17:05 by Winnie Jay) Acute coronary syndrome (Acute) NSTEMI (non-ST elevated myocardial infarction) (Acute) HLD (hyperlipidemia) (Acute) Reason for Visit: Follow-up for chest pain, non-STEMI Objective: Patient denies any chest pain or shortness of breath. gambling monitor reviewed. Normal sinus rhythm. Blood pressure on the lower side, 90s but map is more than 65 Vitals/I&O's: Vital Signs Temp Pulse Resp BP Pulse Ox 98.4 F 63 16 88/60 L 97 07/03/19 04:00 07/03/19 07:00 07/03/19 07:00 07/03/19 07:00 07/03/19 07:00 Oxygen Flow Rate (L/min) 2 Oxygen Delivery Method Room Air Weight: 164 lb 3.91 oz Body Mass Index (BMI) 23.3 Intake and Output for Last 24 Hours 07/01/19 07/02/19 07/03/19 23:59 23:59 23:59 Intake Total 2156.68 / 2156.68 240 / 240 Output Total 1325 / 1325 400 / 400 Balance 831.68 / 831.68 -160 / -160 General: Alert, Oriented x3, Cooperative HEENT: Atraumatic, PERRLA, EOMI, Normocephalic Neck: Supple, No JVD, Negative Carotid Bruits Lungs: Clear to auscultation, Normal air movement, No rhonchi, No wheeze, No rales Cardiovascular: Regular rate, Regular Rhythm, Normal S1, Normal S2, No murmurs Abdomen: Bowel Sounds Present, Soft, Non Tender, Non-Distended Extremities: No edema, Capillary Refill Less than 3 Seconds Skin: No rashes, No breakdown, - - Right femoral cardiac cath exit site: No hematoma/bruise or palpable thrill Musculoskeletal: No Tenderness to Palpation of Joints or Extremities Neurological: Cranial nerves II-XII grossly intact Psych/Mental Status: Normal Affect, Appropriate Laboratory Results 07/02/19 10:11: Activated Clotting Time 208 H 07/02/19 11:45: Troponin I 3.900 H* 07/02/19 12:19: Activated Clotting Time 186 H 07/02/19 13:17: Activated Clotting Time 164 H 07/03/19 04:05: WBC 8.0, RBC 4.72, Hgb 14.6, Hct 43.5, MCV 92.2, MCH 30.9, MCHC 33.6, RDW Std Deviation 42.9, RDW Coeff of Felicity 12.8, Plt Count 158, MPV 9.5, Immature Gran % (Auto) 0.400, Neut % (Auto) 73.1 H, Lymph % (Auto) 15.9 L, Rutherford % (Auto) 8.4, Eos % (Auto) 1.9, Baso % (Auto) 0.3, Absolute Neuts (auto) 5.9, Absolute Lymphs (auto) 1.27, Nucleated RBC % 0 07/03/19 04:05: Sodium 141, Potassium 3.9, Chloride 112 H, Carbon Dioxide 22.0, Anion Gap 7, BUN 9, Creatinine 0.82, Estim Creat Clear Calc 81.63, Est GFR (MDRD) Af Amer 118, Est GFR (MDRD) Non-Af 97, BUN/Creatinine Ratio 11.0, Glucose 119 H, Calcium 8.1 L, Total Bilirubin 0.60, AST 112 H, ALT 29, Alkaline Phosphatase 52, Total Protein 6.6, Albumin 3.4, Globulin 3.2, Albumin/Globulin Ratio 1.1, TSH 1.36 07/03/19 04:05: Troponin I 22.400 H* Current Medications Acetaminophen (Tylenol) 650 mg PO Q6H PRN PRN PRN Reason: Pain Score 1-10/Temp > 100.7 F Al Hydroxide/Mg Hydroxide (Mylanta Ii) 30 ml PO Q6H PRN PRN PRN Reason: Gastric Burning Albuterol Sulfate (Ventolin Aerosols) 2.5 mg INHALATION Q2H PRN PRN PRN Reason: SOB/Wheezing Aspirin (Ecotrin) 81 mg PO DAILY@0800 [facility] Atorvastatin Calcium (Lipitor) 80 mg PO QHS [facility] Last Admin: 07/02/19 21:10 Dose: 80 mg Documented by: Atropine Sulfate () 0.5 mg IV UD PRN PRN Reason: HR <50 bpm Carvedilol (Coreg) 3.125 mg PO BID [facility] Last Admin: 07/02/19 21:10 Dose: 3.125 mg Documented by: Dextrose (D50w Syringe) 0 gm IV X1 PRN; Protocol PRN Reason: Hypoglycemia Famotidine (Pepcid) 20 mg PO BID [facility] Last Admin: 07/02/19 21:10 Dose: 20 mg Documented by: Fluticasone Propionate (Flonase Nasal [place]) 2 spray NASAL DAILY [facility] Last Admin: 07/03/19 03:50 Dose: Not Given Documented by: Glucagon () 1 mg IM .X1 PRN PRN Reason: Hypoglycemia Heparin Sodium (Beef Lung) (Heparin 500 Unit/5 Ml (100/Ml)) 500 unit IV UD PRN PRN Reason: HEPARIN FLUSH Heparin Sodium (Porcine) (Heparin Na) 0 unit IV UD PRN; Protocol Sodium Chloride () 1,000 mls @ 75 mls/hr IV .[id number] [facility] Last Admin: 07/03/19 03:50 Dose: Not Given Documented by: Sodium Chloride () 500 mls @ 15 mls/hr IV PRN PRN PRN Reason: Blood Transfusion Sodium Chloride () 250 mls @ 15 mls/hr IV .[id number] PRN PRN Reason: Saline Flush Sodium Chloride () 250 mls @ 15 mls/hr IV .[id number] PRN PRN Reason: Additional IVPB Infusion Sodium Chloride () 1,000 mls @ 15 mls/hr IV .Q48H [facility] Last Admin: 07/03/19 03:49 Dose: Not Given Documented by: Labetalol HCl (Trandate) 5 mg IV X1 PRN PRN Reason: SBP > 160 when pulling sheath Lorazepam (Ativan) 1 mg PO Q6H PRN PRN PRN Reason: BACK SPASMS/ANXIETY Metoclopramide HCl (Reglan) 5 mg IV Q6H PRN PRN PRN Reason: NAUSEA/VOMITING Morphine Sulfate () 2 - 4 mg IV Q4H PRN PRN PRN Reason: Pain Score 1-10/10 Morphine Sulfate () 2 - 4 mg IV Q4H PRN PRN PRN Reason: Pain Score 1-10/10 Nitroglycerin (Nitrostat) 0.4 mg SUBLINGUAL Q5M PRN PRN Reason: CARDIAC/CHEST PAIN Oxycodone HCl (Oxyir) 5 mg PO Q4H PRN PRN PRN Reason: Pain Score 4-5/10 Prochlorperazine Edisylate (Compazine Iv) 5 mg IV Q4H PRN PRN PRN Reason: Breakthrough Nausea/Vomiting Senna/Docusate Sodium (Senokot-S, Rosalia-Colace) 2 tablet PO BID PRN PRN PRN Reason: Constipation Sodium Chloride () 10 - 40 ml IV UD PRN PRN Reason: SALINE FLUSH Sodium Chloride () 500 ml IV BOLUS PRN PRN Reason: VASO-VAGAL PROTOCOL Ticagrelor (Brilinta) 90 mg PO BID [facility] Last Admin: 07/02/19 21:19 Dose: 90 mg Documented by: STROKE Vital Signs/Narrative: Vital Signs Pulse Resp BP Pulse Ox 07/03/19 07:00 63 16 88/60 L 97 07/03/19 06:00 76 16 94/58 L 98 07/03/19 05:00 59 L 18 97/61 97 Medical Necessity - Tobacco Use Smoking Status: Former smoker Tobacco Use: - - Smoke few cigarettes immunostain for few years Assessment/Plan All Active Problems (Last Updated 07/02/19 @ 17:05 by Winnie Jay) Acute coronary syndrome (Acute) NSTEMI (non-ST elevated myocardial infarction) (Acute) HLD (hyperlipidemia) (Acute) The patient is a 74 year old M with no significant medical history except dyslipidemia on low-dose of simvastatin came to ED with interscapular pain. In ED, EMS EKG shows slight ST depression V4 to V6 and 1 in [address]VL and mild ST elevation in lead V1. This almost resolved in EKG done in ER. EKG normal sinus rhythm with LAD at 61 bpm. Basic labs done in ER shows troponin 0 0.572, glucose 140. K normal 3.9. Chest x-ray reported no acute cardiopulmonary abnormality. 1. Non-STEMI/acute coronary syndrome: Patient was taken to heart cath. Patient had Brilinta 180 mg and aspirin 81 mg daily. LHC showed EF 40% with anterior hypokinesis, apex akinetic. Mid LAD subtotal occlusion, 99% occlusion. STONE inserted. On low-dose of Coreg 3.125 mg twice daily, atorvastatin. Blood pressure is lower side, systolic 90s therefore not candidate for KAHLIL/ARB. EKG done in PCU showed slight ST J-point elevation 1 mm in V1 and V2, slight ST depression in 1 and aVL. Does not meet the strict criteria for STEMI which is new ST elevation greater than 1 mm in all leads other than V2 or V3 and greater than 2 mm in V2 and V3, suggestive of non-STEMI. Repeat EKG at 10:34 shows sinus rhythm with LAD. ST-T changes in previous EKG has reversed. 07/03/2019: Troponin cycled reached maximum to 22.4. TSH 1.36. Blood pressure low, avoid antihypertensive, KAHLIL/ARB. 2. Right lung nodule ruled out possible nipple shadow,: Repeat chest x-ray PA and shallow oblique was done. Repeat x-ray did not low-density probably right nipple shadow. No acute abnormality. 3. Dyslipidemia: On atorvastatin 40 mg daily. Fasting profile LDL 79, TG 72, HDL 43. 4. Seasonal allergy: Controlled. Home medication Nasonex nasal spray continued. DVT prophylaxis: Patient on IV heparin drip. Living will/advanced directive/end of life care: Patient does have living will or advanced directive. After discussion of procedures involved with full code, DNR CC arrest and DNR CC, the patient opted for DNR-CC Arrest Patient does not want artificial life support including intubation, tube feed, ventilator and/chest compression, central venous catheter, vasopressor and DC shock if needed DNR CC arrest; no intubation. Total time spent in [id number] encounter in discussion of advanced directive 16 minutes. Laboratory Results 07/02/19 10:11: Activated Clotting Time 208 H 07/02/19 11:45: Troponin I 3.900 H* 07/02/19 12:19: Activated Clotting Time 186 H 07/02/19 13:17: Activated Clotting Time 164 H 07/03/19 04:05: WBC 8.0, RBC 4.72, Hgb 14.6, Hct 43.5, MCV 92.2, MCH 30.9, MCHC 33.6, RDW Std Deviation 42.9, RDW Coeff of Felicity 12.8, Plt Count 158, MPV 9.5, Immature Gran % (Auto) 0.400, Neut % (Auto) 73.1 H, Lymph % (Auto) 15.9 L, [place]utherford % (Auto) 8.4, Eos % (Auto) 1.9, Baso % (Auto) 0.3, Absolute Neuts (auto) 5.9, Absolute Lymphs (auto) 1.27, Nucleated RBC % 0 07/03/19 04:05: Sodium 141, Potassium 3.9, Chloride 112 H, Carbon Dioxide 22.0, Anion Gap 7, BUN 9, Creatinine 0.82, Estim Creat Clear Calc 81.63, Est GFR (MDRD) Af Amer 118, Est GFR (MDRD) Non-Af 97, BUN/Creatinine Ratio 11.0, Glucose 119 H, Calcium 8.1 L, Total Bilirubin 0.60, AST 112 H, ALT 29, Alkaline Phosphatase 52, Total Protein 6.6, Albumin 3.4, Globulin 3.2, Albumin/Globulin Ratio 1.1, TSH 1.36 07/03/19 04:05: Troponin I 22.400 H* [Clinical Impression(s) from Imaging Studies Chest X-Ray 07/02/19 05:18 IMPRESSION: No acute cardiopulmonary abnormality. Right lung nodular density may be related to the lung nodule or superimposition. Recommend nonemergent follow-up PA and shallow oblique radiographs for further evaluation. Inpatient E&M: 50995 Subs Hosp L2
[2019-07-03] MEDS: Famotidine 20 MG Tablet PO ×2 (09:08→22:05)
[2019-07-03] MEDS: Aspirin E.C. 81 MG Tablet PO (09:08)
[2019-07-03] MEDS: Fluticasone 0.05% 1 SPRAY NASAL.SRY 2 SPRAY NASAL (09:38)
[2019-07-03] MEDS: TICAGRELOR 90 MG TABLET PO ×2 (09:38→22:05)
--- NOTE | 2019-07-03 10:00 | CASEMGMT ---
RN CM Face to Face with patient for initial transition planning/care coordination assessment. RN CM introduced self and role at [facility]. Patient lying in bed, alert and oriented. Patient willing to participate in assessment and is able to answer all questions appropriately. Care providers, pharmacy, and demographics verified. Patient wishes to discharge home, denies need for home health at this time. Patient states he has no further needs or concerns at this time. CM to follow for discharge planning needs that may arise. PCP: Bogdan Specialists: None Preferred Pharmacy: [facility] Insurance: Ozzie CAAL Prescription Benefit: yes, part D Living Will/HPOA: yes, daughter Dena Slaughter LNOK: , daughter Living Arrangements: Patient lives with in single story home with 1 step to enter the home. Transportation: self/ DME/HHC: Patient states he has raised toilet and crutches at home. Patient denies previous HHC or SNF. [employer] savings card given to patient. Disposition Plan: Patient to discharge home with family support and follow-up plans in place. Emma GILL, RN, CM
--- NOTE | 2019-07-03 10:00 | EKG12_ITS ---
Test Reason : AM EKG Blood Pressure : / mmHG Vent. Rate : 063 BPM Atrial Rate : 063 BPM P-R Int : 170 ms QRS Dur : 096 ms QT Int : 440 ms P-R-T Axes : -09 -50 -27 degrees QTc Int : 450 ms Normal sinus rhythm Left axis deviation Septal infarct , age undetermined T wave abnormality, consider anterior ischemia Abnormal ECG When compared with ECG of 02-JUL-2019 10:38, MANUAL COMPARISON REQUIRED, DATA IS UNCONFIRMED Confirmed by CARLOS ALBERTO HOUSTON ([id number]), restaurant expeditor CHRISTEL BELTRE ([id number]) on 07/04/2019 10:36:08 AM Referred By: CELSO Confirmed By:CARLOS ALBERTO HOUSTON
--- NOTE | 2019-07-03 10:00 | NURSING ---
report called to [facility] for transfer to room 116
--- NOTE | 2019-07-03 10:07 | PN.CARD_ITS ---
Subjectve: The patient is awake and alert. He denies ongoing issues of left upper extremity or shoulder or back discomfort. He states those symptoms dissipated after his PCI procedure. He has had no other acute symptoms. Objective: Vital Signs Temp Pulse Resp BP Pulse Ox 98.4 F 69 16 104/58 L 99 07/03/19 04:00 07/03/19 09:00 07/03/19 08:00 07/03/19 09:00 07/03/19 09:00 Oxygen Flow Rate (L/min) 2 Oxygen Delivery Method Room Air Weight: 164 lb 3.91 oz Body Mass Index (BMI) 23.3 Intake and Output for Last 24 Hours 07/01/19 07/02/19 07/03/19 23:59 23:59 23:59 Intake Total 2156.68 / 2156.68 240 / 240 Output Total 1325 / 1325 400 / 400 Balance 831.68 / 831.68 -160 / -160 General: Awake, Alert, Oriented x 3, Cooperative, No Acute Distress HEENT: Atraumatic, Normocephalic, PERRL Oral: Moist Mucosa Neck: Supple, Good ROM, No JVD Lungs: Clear to auscultation Cardiovascular: Regular Rhythm, Normal S1, Normal S2 Abdomen: Bowel Sounds Present, Soft, Non Tender Extremities: No edema Neurological: No Focal Motor or Sensory Deficit Psych/Mental Status: Appropriate 07/02/19 11:45: Troponin I 3.900 H* 07/03/19 04:05: WBC 8.0, RBC 4.72, Hgb 14.6, Hct 43.5, MCV 92.2, MCH 30.9, MCHC 33.6, Plt Count 158, MPV 9.5, Immature Gran % (Auto) 0.400, Neut % (Auto) 73.1 H , Lymph % (Auto) 15.9 L, Edgar % (Auto) 8.4, Eos % (Auto) 1.9, Baso % (Auto) 0.3, Absolute Neuts (auto) 5.9, Nucleated RBC % 0 07/03/19 04:05: Sodium 141, Potassium 3.9, Chloride 112 H, Carbon Dioxide 22.0, Anion Gap 7, BUN 9, Creatinine 0.82, Est GFR (MDRD) Af Amer 118, Est GFR (MDRD) Non-Af 97, BUN/Creatinine Ratio 11.0, Glucose 119 H, Calcium 8.1 L, Total Bilirubin 0.60 07/03/19 04:05: Troponin I 22.400 H* Rhythm: Sinus rhythm EKG: Sinus rhythm; left axis deviation; possible left anterior fascicular block; septal NM of indeterminate age; nonspecific T wave change-consider myocardial ischemia-lateral ECHO: Interpretation Summary The study was technically difficult. Contrast injection was performed. Mild segmental systolic dysfunction (see wall motion). The estimated ejection fraction is 45 %. Apical false tendon noted. Trivial mitral valve insufficiency. Trivial tricuspid valve insufficiency. Mild focal aortic valve thickening. Right ventricular systolic pressure estimated to be 31 mmHg. No evidence for diastolic dysfunction. Medical Necessity - Tobacco Use Smoking Status: Former smoker Tobacco Use: - - Smoke few cigarettes immunostain for few years Assessment/Plan 1. Acute non-ST segment elevation NM The patient presents with symptoms, abnormal troponin I levels, and an abnormal ECG concerning for an acute non-ST segment elevation NM. He has been treated medically. He has undergone evaluation with diagnostic cardiac catheterization. This led to LAD PCI. At the present time he appears to be symptomatically improved. He will continue medical therapy. Eventually he will be enrolled in outpatient cardiac rehabilitation therapy. 2. CAD status post LAD PCI/STONE The present time he does not appear to be symptomatically improved. He will continue medical therapy with adjustment based on symptoms, vital signs, etc. He will eventually be enrolled in outpatient cardiac rehabilitation. 3. Hyperlipidemia The patient states he has a history of hyperlipidemia. He has been on medical management. His lipids can be evaluated and his medications can be adjusted as deemed appropriate. Comment: The patient's case has been discussed and reviewed with patient and Dr. Jacques. This note was generated using a voice recognition system and there may be incorrect words, spelling or punctuation that were not noted when reviewing the office note prior to saving.
[2019-07-03] MEDS: 0.9% Saline Lock 10 ML Syringe IV (10:49)
[2019-07-03] MEDS: Carvedilol 3.125 MG TABLET PO (10:49)
[2019-07-03] MEDS: Atorvastatin Calcium 80 MG Tablet PO (22:07)
[2019-07-04] VITALS (7 sets, daily range): BP systolic 87–122; BP diastolic 51–71; PULSE 65–98; RESP 16–18; TEMP 36.6–36.9; O2SAT 96–98
[2019-07-04] MEDS: Fluticasone 0.05% 1 SPRAY NASAL.SRY 2 SPRAY NASAL (09:12)
[2019-07-04] MEDS: Carvedilol 3.125 MG TABLET PO (09:12)
[2019-07-04] MEDS: TICAGRELOR 90 MG TABLET PO (09:12)
[2019-07-04] MEDS: Aspirin E.C. 81 MG Tablet PO (09:12)
[2019-07-04] MEDS: Famotidine 20 MG Tablet PO (09:14)
--- NOTE | 2019-07-04 09:57 | PN.CARD_ITS ---
Subjectve: The patient is awake and alert. He has been up and ambulating. He denies any ongoing chest discomfort or difficulty breathing. There has been no li ghtheadedness, dizziness, or symptoms of near syncope, etc. He states overall he feels well. Objective: Vital Signs Temp Pulse Resp BP Pulse Ox 97.8 F 85 16 122/71 H 98 07/04/19 09:08 07/04/19 09:08 07/04/19 09:08 07/04/19 09:08 07/04/19 09:08 Oxygen Flow Rate (L/min) 2 Oxygen Delivery Method Room Air Weight: 163 lb 12.855 oz Body Mass Index (BMI) 23.3 Intake and Output for Last 24 Hours 07/02/19 07/03/19 07/04/19 23:59 23:59 23:59 Intake Total 2156.68 / 2156.68 960 / 960 Output Total 1325 / 1325 400 / 400 Balance 831.68 / 831.68 560 / 560 General: Awake, Alert, Oriented x 3, Cooperative, No Acute Distress, Ill Appearing HEENT: Atraumatic, Normocephalic, PERRL, EOMI, Sclera Non Icteric Oral: Moist Mucosa Neck: Supple, Good ROM, No JVD Lungs: Clear to auscultation Cardiovascular: Regular Rhythm, Normal S1, Normal S2 Abdomen: Bowel Sounds Present, Soft, Non Tender Extremities: No Cyanosis, No Clubbing, No edema Neurological: No Focal Motor or Sensory Deficit Psych/Mental Status: Appropriate 07/03/19 12:00: Troponin I 14.400 H* Rhythm: Sinus rhythm; rare PVC Medical Necessity - Tobacco Use Smoking Status: Former smoker Tobacco Use: - - Smoke few cigarettes immunostain for few years Assessment/Plan 1. Acute non-ST segment elevation IA The patient presents with symptoms, abnormal troponin I levels, and an abnormal ECG concerning for an acute non-ST segment elevation IA. He has been treated medically. He has undergone evaluation with diagnostic cardiac catheterization. This led to LAD PCI. At the present time he appears to be symptomatically improved. He will continue medical therapy. Eventually he will be enrolled in outpatient cardiac rehabilitation therapy. 2. CAD status post LAD PCI/STONE The present time he does not appear to be symptomatically improved. He will continue medical therapy with adjustment based on symptoms, vital signs, etc. He will eventually be enrolled in outpatient cardiac rehabilitation. 3. Hyperlipidemia The patient states he has a history of hyperlipidemia. He has been on medical management. His lipids can be evaluated and his medications can be adjusted as deemed appropriate. Overall, the tentative plan will be for the patient to be released home with continued medical therapy, future outpatient cardiovascular follow-up, and future outpatient cardiac rehabilitation-all based upon the ongoing coronavirus pandemic related issues. Comment: The patient's case has been discussed and reviewed with patient and Dr. Carreon. This note was generated using a voice recognition system and there may be incorrect words, spelling or punctuation that were not noted when reviewing the office note prior to saving.
--- NOTE | 2019-07-04 10:00 | EKG12_ITS ---
Test Reason : AM EKG Blood Pressure : / mmHG Vent. Rate : 070 BPM Atrial Rate : 070 BPM P-R Int : 174 ms QRS Dur : 094 ms QT Int : 472 ms P-R-T Axes : 071 -54 -44 degrees QTc Int : 509 ms Normal sinus rhythm Low voltage QRS Left anterior fascicular block Septal infarct , age undetermined T wave abnormality, consider anterolateral ischemia Prolonged QT Abnormal ECG When compared with ECG of 03-JUL-2019 04:49, MANUAL COMPARISON REQUIRED, DATA IS UNCONFIRMED Confirmed by OBEY CROOK, CARLOS ([id number]), video tape editor CHRISTEL BELTRE ([id number]) on 07/09/2019 9:17:40 AM Referred By: DR BANKS Confirmed By:RICARDO BARNHART MD
--- NOTE | 2019-07-04 10:54 | PCM.DC ---
- Discharge Diagnoses Current Active Problems: Current Active and Chronic Problems (Last Updated 07/02/19 @ 17:05 by Winnie Jay) Atherosclerotic heart disease of [place] coronary artery without angina pectoris (Chronic) S/P coronary artery stent placement (Chronic ~07/02/19) Successful PTCA/STONE heparin/brilinta assisted PCI of mid LAD with [place] assistance, utilizing a 2.5 x 24 Promus Synergy, post dilated proximally with a 3.0 x 8 NC balloon; 99%-->0%, no dissection. per cath 07/02/19 Acute coronary syndrome (Acute) NSTEMI (non-ST elevated myocardial infarction) (Acute) HLD (hyperlipidemia) (Acute) You will use the following diet at home:: No restrictions Your food should be the consistency of: Regular Your liquids should be the consistency of: Regular/Thin Discharge Activity: Return to Normal Activity Weight Bearing Status: Full weight bearing Allergies/Adverse Reactions: Allergies amoxicillin Allergy (Verified 07/02/19 08:20) Rash Medications to take at Discharge Aspirin [Aspirin, Baby] 81 mg PO DAILY@0800 05/02/16 Mometasone Furoate [Nasonex] 2 spray NASAL DAILY 07/02/19 Aspirin E.C. [Ecotrin] 81 mg PO DAILY@0800 tablet 07/04/19 Atorvastatin Calcium [Lipitor] 80 mg PO QHS #30 tab 07/04/19 Carvedilol [Coreg (Beta Eamon)] 3.125 mg PO BID #60 tab 07/04/19 Ticagrelor [Brilinta] 90 mg PO BID #60 tab 07/04/19 The following prescriptions were given: Ticagrelor [Brilinta] 90 mg PO BID #60 tab Transmission Status: Pending to [id number] Carvedilol [Coreg (Beta Eamon)] 3.125 mg PO BID #60 tab Transmission Status: Pending to [id number] Atorvastatin Calcium [Lipitor] 80 mg PO QHS #30 tab Transmission Status: Pending to [id number] Orders to be completed after discharge: Phase II, Outpatient Cardiac Rehab Location: None Selected Primary Care Physician: Luciano Mcfadden [Primary Care Provider] - Please follow up with your Primary Care Physician in: as scheduled Test Results: Test results from this visit will be discussed in further detail at your follow-up appointment, if applicable. Please Follow Up With: Perez Cheung MD When: as scheduled
--- NOTE | 2019-07-04 16:29 | DS.PCM_ITS ---
Discharge Date and Diagnosis Date of Admission: 07/02/19 Date of Discharge: 07/04/19 - Primary Discharge Diagnosis #1 non-STEMI #2 occlusive coronary artery disease mid LAD #3 hyperlipidemia #4 [place] multivessel coronary artery disease - Secondary Discharge Diagnosis Chronic Problems (Last Updated 07/02/19 @ 17:05 by Winnie Jay) Atherosclerotic heart disease of [place] coronary artery without angina pectoris (Chronic) S/P coronary artery stent placement (Chronic ~07/02/19) Successful PTCA/STONE heparin/brilinta assisted PCI of mid LAD with [place] assistance, utilizing a 2.5 x 24 Promus Synergy, post dilated proximally with a 3.0 x 8 NC balloon; 99%-->0%, no dissection. per cath 07/02/19 Hyperlipidemia (Chronic) Seasonal allergies (Chronic) Hospital Course and Treatment Operations: None Procedures: 2-D Echocardiogram, Cardiac catheterization Summary of Care Provided: The patient is a 74 year old M was seen in the emergency room at [facility] with a chief complaint of intrascapular pain. Work-up in the emergency room included an EKG which showed slight ST depression in V4 to V6 and 1 and [address]VL with mild ST elevation in lead V1. Labs were drawn which showed a troponin to be elevated at 0.572, chest x-ray reported no acute cardiopulmonary abnormality. Patient was admitted to PCU for a non-STEMI, he was placed on IV heparin drip and given Brilinta and aspirin. Serial troponins were ordered and these remained elevated. He underwent a cardiac catheterization which revealed a severe stenosis of an area of the mid LAD, this was stented with a drug- eluting stent after undergoing PCI. Patient did well post stent placement, there were no significant complications from the procedure and after staying in the ICU overnight, he was transferred to PCU. On 07/04/2019, patient was seen and examined: On examination he appeared in good health and spirits. Vital signs as documented. Skin warm and dry and without overt rashes. Neck without JVD, neck was supple, trachea midline, thyroid was normal. Lungs clear bilaterally, normal air movement was noted. Heart exam notable for regular rhythm, normal sounds and absence of murmurs, rubs or gallops. Abdomen unremarkable and without evidence of organomegaly, masses, or abdominal aortic enlargement. Bowel sounds are present, abdomen is not distended. Extremities nonedematous, no cyanosis was noted, no clubbing was noted. Neuro: Cranial nerves II through XII are grossly intact, no focal motor deficits were noted, sensation to light touch and pinprick intact, motor exam 5/5 throughout. Psych: Patient is alert and oriented x3, he does not appear anxious or depressed, he does not appear agitated. Patient appears to be stable for discharge home on 07/04/2019, he was not placed on an KIET inhibitor or an ARB due to the patient's hypotension. Patient was discharged home in stable condition on 07/04/2019. - Physical Exam Vitals/I&O's: Vital Signs Temp Pulse Resp BP Pulse Ox 97.8 F 85 16 122/71 H 98 07/04/19 09:08 07/04/19 09:08 07/04/19 09:08 07/04/19 09:08 07/04/19 09:08 Oxygen Flow Rate (L/min) 2 Oxygen Delivery Method Room Air Weight: 74.3 kg Body Mass Index (BMI) 23.3 Intake and Output for Last 24 Hours 07/02/19 07/03/19 07/04/19 23:59 23:59 23:59 Intake Total 2156.68 / 2156.68 960 / 960 Output Total 1325 / 1325 400 / 400 Balance 831.68 / 831.68 560 / 560 Discharge Activity: Return to Normal Activity Weight Bearing Status: Full weight bearing Home Medications: Medications to take at Discharge Aspirin [Aspirin, Baby] 81 mg PO DAILY@0800 05/02/16 Mometasone Furoate [Nasonex] 2 spray NASAL DAILY 07/02/19 Aspirin E.C. [Ecotrin] 81 mg PO DAILY@0800 tab 07/04/19 Atorvastatin Calcium [Lipitor] 80 mg PO QHS #30 tab 07/04/19 Carvedilol [Coreg (Beta Eamon)] 3.125 mg PO BID #60 tab 07/04/19 Ticagrelor [Brilinta] 90 mg PO BID #60 tab 07/04/19 Following Prescrptions Were Given to Patient: Ticagrelor [Brilinta] 90 mg PO BID #60 tab Transmission Status: [id number] Carvedilol [Coreg (Beta Eamon)] 3.125 mg PO BID #60 tab Transmission Status: Re[id number] Atorvastatin Calcium [Lipitor] 80 mg PO QHS #30 tab Transmission Status: Received by [id number] Other Amb Orders: Phase II, Outpatient Cardiac Rehab Location: None Selected Primary Care Physician: Luciano Mcfadden [Primary Care Provider] - Please follow up with your Primary Care Physician in: as scheduled Please Follow Up With: Perez Cheung MD When: as scheduled Disposition: Home Minutes spent on discharge:: 32 Patient Condition:: Stable Medical Necessity - Tobacco Use Smoking Status: Former smoker Tobacco Use: - - Smoke 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
== END 2019-07-04 11:58 | disposition home or self-care (01) | DRG 246 ==
LOC: ED 07:22 → PCU 08:35 → ICU 11:34 → PCU 07-03 10:39
PROVIDERS: Internal Medicine Cardiovascular Disease; Admitting Provider Internal Medicine; Emergency Provider Emergency Medicine; PCP Student in an Organized Health Care Education/Training Program; Visit Provider Internal Medicine
DX: I21.4 Non-ST elevation (NSTEMI) myocardial infarction (principal); I50.21 Acute systolic (congestive) heart failure; I25.110 Atherosclerotic heart disease of native coronary artery with unstable angina pectoris; E78.5 Hyperlipidemia, unspecified; J30.2 Other seasonal allergic rhinitis; Z66 Do not resuscitate; Z79.82 Long term (current) use of aspirin; Z79.899 Other long term (current) drug therapy; Z87.891 Personal history of nicotine dependence
CPT/HCPCS: 71045; 71047; 80048; 80053; 80061; 83735; 84443; 84484; 85025; 85347; 85730; 92928; 93005; 93306; 93458; 96360; 96361; 99152; 99153; 99251; 99285; J7030; Q9957; Q9967; A4216; C1725; C1757; C1769; C1874; C1887; C1894; C8929; C9600; G0463

== ENCOUNTER → 2019-11-05 07:47 | Outpatient (CLI) | payer MEDICARE, OTHER, SELFPAY ==
[2019-07-02 13:11] VITALS: BMI 23.3
[2019-08-05 10:29] VITALS: BMI 23.0
[2019-11-05 07:36] VITALS: BMI 23.3
--- NOTE | 2019-11-05 07:48 | ECHOD_ITS ---
Reason For Study: CHF Procedure This was a 2D Doppler, Color Flow transthoracic echocardiogram. The exam was of adequate technical quality. Exam performed in department. Left Ventricle Normal LV size. Mild segmental systolic dysfunction (see wall motion). The estimated ejection fraction is 50 %. No evidence for diastolic dysfunction. Mid-Anterior : Hypokinetic. Mid- inferoseptal : Hypokinetic. Mid-anteroseptal : Hypokinetic. Anterior [place] : Akinetic. Inferior [place] : Akinetic. Lateral [place] : Hypokinetic. Septal [place] : Akinetic. Right Ventricle Normal RV size. Normal systolic function. Atria Normal left atrium. Normal right atrium. No doppler evidence for ASD. Mitral Valve There is no mitral annular calcification. Normal mitral valve. Trivial mitral valve insufficiency. Tricuspid Valve Normal tricuspid valve. Mild tricuspid valve insufficiency. Right ventricular systolic pressure estimated to be 31 mmHg. Aortic Valve Trisinus/trileaflet aortic valve. Mild focal aortic valve calcification. Trivial aortic valve insufficiency. Pulmonic Valve The pulmonic valve is not well visualized. Great Vessels Normal sized aortic root. Pericardium/Pleural No pericardial effusion. MMode/2D Measurements & Calculations LVIDd: 4.2 cm IVSd: 1.3 cm Ao root diam: 3.5 cm LVIDs: 2.6 cm LVPWd: 1.1 cm RVDd: 3.5 cm FS: 36.5 % LAV(MOD-bp): 35.1 ml LVAd ap4: 26.4 cm2 SV(MOD-sp4): 37.2 ml LAV(MOD-bp) Indexed: 18.3 ml/m2 EDV(MOD-sp4): 71.6 ml LAV(MOD-sp2): 37.8 ml EDV(sp4-el): 74.0 ml LAV(MOD-sp4): 26.8 ml LVAs ap4: 15.9 cm2 ESV(MOD-sp4): 34.4 ml ESV(sp4-el): 35.4 ml EF(MOD-sp4): 52.0 % EF(sp4-el): 52.2 % SV(sp4-el): 38.6 ml LA A4 area: 13.3 cm2 LA dimension(2D): 3.5 cm RA A4 area: 16.0 cm2 Time Measurements MV dec time: 0.30 sec Doppler Measurements & Calculations MV E max declan: 45.4 cm/sec Lat Peak E' Declan: 8.5 cm/sec Med Peak E' Declan: 6.2 cm/sec MV A max declan: 68.3 cm/sec E/E' lat: 5.3 E/E' med: 7.3 MV E/A: 0.66 MV V2 max: 86.3 cm/sec MV P1/2t max declan: 51.8 cm/sec Ao V2 max: 116.4 cm/sec MV max P.0 mmHg MV P1/2t: 100.9 msec Ao max P.4 mmHg MV V2 mean: 44.7 cm/sec MV mean P.93 mmHg MV dec slope: 150.3 cm/sec2 MV V2 VTI: 20.3 cm MVA(P1/2t): 2.2 cm2 AI max declan: 421.0 cm/sec LV V1 max: 70.3 cm/sec PA V2 max: 120.2 cm/sec AI max P.0 mmHg LV V1 max P.0 mmHg AI dec slope: 238.5 cm/sec2 AI P1/2t: 516.9 msec TR max declan: 262.7 cm/sec TR max P.6 mmHg Interpretation Summary Mild segmental systolic dysfunction (see wall motion). The estimated ejection fraction is 50 %. Trivial mitral valve insufficiency. Mild tricuspid valve insufficiency. Mild focal aortic valve calcification. Trivial aortic valve insufficiency. Right ventricular systolic pressure estimated to be 31 mmHg. No evidence for diastolic dysfunction. Ordering Physician: Ousmane Borges Referring Physician: Luciano Mcfadden Performed By: Dee HERNANDEZ RVT, Carrie and Student
== END ==
PROVIDERS: PCP Student in an Organized Health Care Education/Training Program; Referring Provider Nurse Practitioner Family; Visit Provider Nurse Practitioner Family
DX: I25.10 Atherosclerotic heart disease of native coronary artery without angina pectoris (principal); I25.5 Ischemic cardiomyopathy
CPT/HCPCS: 93306

== ENCOUNTER 2020-10-05 14:30 | Outpatient (RCR) | payer MEDICARE, OTHER, SELFPAY ==
[2019-07-02 13:11] VITALS: BMI 23.3
[2020-05-20 09:04] VITALS: BMI 23.2
--- NOTE | 2020-08-31 15:58 | HP.PTEVAL ---
Patient's Visit Information FRANK BELTRE is a 75 year old M referred to Physical Therapy by Dr. Luciano Mcfadden DO with a diagnosis of Strain of Lumbar region. Date of Evaluation: 08/31/20 Physical Therapist: SHEY Burgess - Visit Plan Frequency: 2x /Week Duration: 4 Weeks Plan: 2X/ week for trunk stretching, HS stretching and hip flexor stretching, Core stability, hip strengthening with teaching of proper lifting techniques as he has lifted other things in the past and tweaked his back in the past with HEP. HEP: Ludy pose straight on and lateral, PT, LTR - Subjective Pt reports that 3 weeks ago he was careless and lifting a dog and she was wiggly and he felt his back pain starting and did not take care of it enough and he had a virtual appt with and she referred him to us. His back currently has hurts for he point to L1-L3 across his back and some pain vertically on the R side along his muscles. He has pain with sitting and standing. Leaning fw bothers him the most cause it causes pain. He has no leg pain. No x-ray of his pain. He has had an occ pain with lifting inapprop in the past but nothing major. Sometimes he will have some pain rolling over in bed. Up and down stairs is not a particular problem. He is able to walk... it hurts at the end of the walk (1 mile or a bit more) and it feels tight. He was every other day. When he is healthy he walks or bikes everyday. Sitting in the eye Dr chair... he was leaning fw and lumbar support was in the wrong position. He mostly sleeping at night but occ it has woken him up at night. - Pain back pain Pain Intensity (Out of 10): 3 - Objective Walks with decrease hip extension, decreased trunk rotation but equal stance time on B LE. Tight HS B. Trunk AROM: flexion 50%, ext 25%, SB B 50% ( with increase pain), Rot B 50%. LE MMT: B hip flex 4/5, B knee ext 4/5, B knee flex 4+/5, B hip abd 4-/5, pt has increase pain and decrease ROM in bridge position. Pt was able to demontrate PT in supine but struggles in sitting and standing. Patella DTR;s 2+/3 B. -SLR and -SLUMP test - Goals Goal 1:: I HEP Goal Time Frame: 6-8 Weeks Goal 2:: Be able to return to biking or walking daily without pain afterwards Goal Time Frame: 6-8 Weeks Goal 3:: Be able to demonstrate lifting techiques without pain Goal Time Frame: 6-8 Weeks Goal 4:: Increase trunk AROM to comfortably flex spine to 75% normal ROM without straining to get into that postion Goal Time Frame: 6-8 Weeks Goal 5:: Be able to demonstrate proper PT in supine, sitting and standing Goal Time Frame: 6-8 Weeks Goal 6:: Be able to walk with increase hip extension wtih gait Goal Time Frame: 6-8 Weeks - Rehabilitation Potential Rehabilitation Potential: Good - Anticipated Interventions Patient/Client Instruction: Educate patient on: Condition, Plan of Care For the Purpose of:: To decrease pain, To increase ROM, To improve nutrient delivery to tissue, To improve muscle performance and motor function, To improve ability to perform ADL's, To increase tolerance to activity/condition/position, To improve performance and independence with ADL's, To decrease level of supervision to perform tasks, To improve ability of physical actions for home/community/work/leisure, To improve gait and locomotor functions, To improve health of tissue, To decrease soft tissue restriction, To increase flexibility/ROM, To improve endurance, To improve balance, To improve safety with gait, To foster healthy habits Therapeutic Exercise to Include: Strength training, Endurance training, Balance training, Coordination, Body mechanics, Postural training, Flexibilty training, Gait and locomotor training, Neuromotor development, Passive ROM, Active ROM, Dynamic Lumbar Stabilization For the Purpose of:: To decrease pain, To decrease swelling/inflammation, To increase ROM, To improve nutrient delivery to tissue, To increase oxygenation perfusion, To improve muscle performance and motor function, To improve ability to perform ADL's, To increase tolerance to activity/condition/position, To improve performance and independence with ADL's, To decrease level of supervision to perform tasks, To improve ability of physical actions for home/community/work/leisure, To improve gait and locomotor functions, To improve health of tissue, To increase flexibility/ROM, To improve endurance, To improve balance, To improve safety with gait, To improve safety, To improve health and function, To foster healthy habits Functional Training to Include: Gait training For the Purpose of:: To improve gait and locomotor functions, To improve safety with gait Manual Therapy Techniques to Include: Mobilization, Passive ROM, Soft tissue mobilization For the Purpose of:: To decrease pain, To decrease swelling/inflammation, To increase ROM, To improve muscle performance and motor function Thank you for the opportunity to evaluate your patient. For Medicare and Medicare HMO plans, please review the plan of care and approve it. It will need to be FAXED BACK to us at [phone] for Medicare purposes. For Medicare only, by signing this I certify the plan of care. Please let me know if there are questions or concerns regarding this plan of care. Physician Signature: Date:
--- NOTE | 2020-10-05 14:52 | HP.PTDCSUM ---
It has been my pleasure to treat FRANK BELTRE referred by Dr. Luciano Mcfadden DO, with the diagnosis of Strain of Lumbar region for a total of 9 visit(s). Discharge Date: 10/05/20 Please see the following information for a summary of their discharge status. Subjective: Pt reports that he feels great. First thing in the morning he is stiff but able to work it out. He absolutely loves his exercises. back pain Pain Intensity (Out of 10): 1 % Improvement: 100 Objective/Function: Trunk AROM: flexion 100%, ext 80%, SB B 100%, Rot B 100%. Pt is able to walk on heels and toes without any signs of weakness or instability. Pt is back to walking his normal Goal 1:: I HEP Goal Progress: Goal Met Goal 2:: Be able to return to biking or walking daily without pain afterwards Goal Progress: Goal Met Goal 3:: Be able to demonstrate lifting techiques without pain Goal Progress: Goal Met Goal 4:: Increase trunk AROM to comfortably flex spine to 75% normal ROM without straining to get into that postion Goal Progress: Goal Met Goal 5:: Be able to demonstrate proper PT in supine, sitting and standing Goal Progress: Goal Met Goal 6:: Be able to walk with increase hip extension wtih gait Goal Progress: Goal Met Plan: DC PT to HEP Discharge Comments: DC PT to HEP If there are questions or concerns regarding this patient's physical therapy, please feel free to call me at [phone]. Thank you for the referral of this patient. Sincerely, Martha Flores, SHEY
== END 2020-10-05 19:00 | disposition home or self-care (01) ==
LOC: PT 14:30
PROVIDERS: PCP Student in an Organized Health Care Education/Training Program; Referring Provider Student in an Organized Health Care Education/Training Program; Visit Provider Student in an Organized Health Care Education/Training Program
DX: S39.012D Strain of muscle, fascia and tendon of lower back, subsequent encounter (principal); X58.XXXD Exposure to other specified factors, subsequent encounter
CPT/HCPCS: 97110; 97161; 97530

== ENCOUNTER 2020-10-21 06:43 | Day surgery (SDC) | payer MEDICARE, OTHER, SELFPAY ==
[2019-07-02 13:11] VITALS: BMI 23.3
[2020-05-20 09:04] VITALS: BMI 23.2
--- NOTE | 2020-10-18 16:45 | HP.PCM_ITS ---
History and Physical Date of Admission: 10/21/20 Atif Kolb is a 75 year old male with a history,CAD without angina pectoris,Hyperlipidemia, Seasonal allergies, NSTEMI, HLD, Diverticulosis of colon, who is scheduled for colonoscopy screening. Patient here for 3 year surveillance, his last colonoscopy was 2017 colonoscopy 5mm cecal polyp,tubular adenoma and 9mm right colon polyp, traditional serrated adenoma. olonocscopy in 2013 findings ascending colon polyp 9mm fragments of sessile serrated polyp with focal, low-grade cytologic dysplasia. HISTORY OF PRESENT ILLNESS Atif Kolb is a 75 year old male who presents today for an evaluation of colon cancer screening or colon polyps. The patient denies change in bowel habits, rectal bleeding or abdominal pain. Denies diarrhea and constipation. Having a bowel movement daily formed and brown. Denies upper GI symptoms - spicy food will cause heartburn. Patient states he stays away from that food. Review of Systems: GENERAL: No weight loss, malaise or fevers. HEENT: Negative for frequent or significant headaches, No changes in hearing or vision, no nose bleeds or other nasal problems RESPIRATORY: Negative for cough, hemoptysis, wheezing, COPD, dyspnea or shortness of breath CARDIOVASCULAR: Negative for chest pain, leg swelling, hypertension, CHF or palpitations MUSCULOSKELETAL: Negative for joint pain or swelling, back pain or muscle pain SKIN: Negative for lesions, rash, and itching. PSYCH: Negative for sleep disturbance, mood disorder and recent psychosocial stressors. HEMATOLOGY/LYMPHOLOGY: Negative for prolonged bleeding, bruising easily or swollen nodes. ENDOCRINE: Negative for cold or heat intolerance, polyuria or polydipsia. NEURO: No history of headaches, syncope, paralysis, seizures or tremors The remainder of the review of systems is negative. PAST MEDICAL HISTORY PAST MEDICAL HISTORY Diagnosis Date ? Allergic rhinitis due to other allergen ? Diverticulosis of colon (without mention of hemorrhage) Diverticulosis ? Memory change 12/2017 score ? Non-ST elevation myocardial infarction (NSTEMI) (HCC) ? Other and unspecified hyperlipidemia ? Tubular adenoma 01/2014 repeat colonoscopy in [address] Rocco FERGUSON ? Unspecified hemorrhoids without mention of complication Hemorrhoids PAST SURGICAL HISTORY PAST SURGICAL HISTORY Procedure Laterality Date ? COLONOSCOP W/ OR W/O [facility] SPEC 05-19-2003 Repeat in ? COLONOSCOP W/ OR W/O [facility] SPEC 01/20/14 Colonoscopy ? COLONOSCOP W/ OR W/O [facility] SPEC 02/27/2017 repeat 3 years ? INGUINAL HERNIA REPAIR HX approx. 2005 left side, mesh placed CURRENT MEDICATIONS Current Outpatient Medications Medication Sig Dispense Refill ? atorvastatin (LIPITOR) 80 mg tablet Take 80 mg by mouth once daily. ? ticagrelor (BRILINTA) 60 mg tablet Take 60 mg by mouth twice daily. ? carvedilol (COREG) 3.125 mg tablet Take 3.125 mg by mouth twice daily with meals. ? mometasone (NASONEX) 50 mcg/actuation nasal spray Use 2 Sprays in the nose once daily. Rinse mouth after use. 3 Bottle 3 ? Cetirizine (ZYRTEC) 10 mg cap Take by mouth. ? albuterol HFA (PROVENTIL HFA, VENTOLIN HFA) 90 mcg/actuation inhaler Inhale 2 Puffs as instructed every 6 hours as needed for Wheezing/Shortness of Breath. 1 Inhaler 0 ? guaiFENesin (MUCINEX) 600 mg 12 hr tablet Take 2 tablets by mouth twice daily. 30 tablet 0 ? ASPIRIN 81 MG CHEWABLE TAB Take one(1) tablet daily. 0 ? polyethylene glycol 3350 (MIRALAX, GLYCOLAX) 17 gram/dose powder Use as directed for Miralax / Gatorade Bowel Prep Kit 238 g 0 ? Bisacodyl (DULCOLAX) 5 mg tab Use as directed for Miralax / Gatorade Bowel Prep Kit 4 tablet 0 ? simvastatin (ZOCOR) 10 mg tablet Take 1 tablet by mouth daily at bedtime. Appointment needed for future refills (Patient not taking: Reported on 07/28/2020 ) 90 tablet 0 ? Fexofenadine-Pseudoephedrine 180-240 mg per 24 hr tablet Take 1 tablet by mouth once daily. (Patient not taking: Reported on 07/28/2020 ) ? Fluorouracil 5 % cream Apply twice daily to scalp for 2-4 weeks (Patient not taking: Reported on 07/28/2020 ) 40 g 0 No current facility-administered medications for this visit. ALLERGIES ALLERGIES Allergen Reactions ? Amoxicillin Rash SOCIAL HISTORY Social History Tobacco Use ? Smoking status: Former Smoker Packs/day: 0.50 Years: 5.00 Pack years: 2.50 Types: Cigarettes Start date: 05/27/1961 Quit date: 05/27/1966 Years since quittin.2 ? Smokeless tobacco: Never Used ? Tobacco comment: 5 years of tobacco use in college. Father smoked in childhood home. No smoking in current home. Substance Use Topics ? Alcohol use: No ? Drug use: No FAMILY HISTORY (grandparents, parents, brothers, sisters, aunts, or uncles) Ulcerative Colitis: No Crohn's Disease: No Colon Cancer: No Colon Polyps: No IBS: No Celiac disease: No PHYSICAL EXAMINATION BP 104/68 Pulse 79 Ht 5' 11 (1.80m) Wt 167 lb 12.8 oz (76.1kg) SpO2 98% BMI 23.41 kg/(m^2). Last 6 Encounter Wt Readings: Date: Wt: 07/28/2020 76.1 kg (167 lb 12.8 oz) 04/09/2019 79.4 kg (175 lb) 02/25/2019 79.8 kg (176 lb) 12/29/2017 80.3 kg (177 lb) 09/26/2017 79.8 kg (176 lb) 06/26/2017 78.5 kg (173 lb)] General Appearance: Well appearing, alert, in no acute distress, well-hydrated, well nourished. Eyes: PERRLA, conjunctiva and sclera normal Oropharynx: Lips, tongue, and oral mucosa normal. There is no thrush or oral ulcers. Lungs:breath sounds clear to auscultation bilaterally, no crackles, rhonchi, or wheezes Heart: regular rate and rhythm, no murmurs or gallops. Abdomen: not distended, normal bowel sounds, soft and depressible, no guarding or rebound, no palpable mass, no organomegaly Rectal exam: Deferred. Extremities: no cyanosis or edema Skin: no jaundice, no spider angiomas, no palmar erythema Neuro:alert, oriented x 3, pleasant and in no acute distress IMPRESSION (Z91.89) High risk for colon cancer (primary encounter diagnosis) PLAN Patient presents today for 3-year colonoscopy screening. Patient did not meet open access criteria because of recent heart attack in June 2019. 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 Patient denies any upper and lower GI symptoms. Plan for colonoscopy. This patient will be scheduled for a colonoscopy using Miralax as the prep. The preparation, as well as the procedure, has been explained in detail. The risks, benefits, anticipated outcomes and possible complications, including failure to complete the endoscopy and perforation, were mentioned. I explained the procedure in understandable terms and the patient was given printed material concerning the planned procedure. The patient had the opportunity to ask questions concerning the planned procedure. The patient freely consents to the planned procedure.
[2020-10-21 07:06] VITALS: BP 106/68; PULSE 93; RESP 16; TEMP 36; O2SAT 100; BMI 23.3
[2020-10-21] MEDS: Lactated Ringers 1,000 ML 100 ML IV (07:11)
--- NOTE | 2020-10-21 08:00 | COLBX_PTH ---
PATIENT: FRANK BELTRE LOC: EN U#:[id number] AGE/SX: 75/M ROOM: RE10/21/[address]: Dr. Lakeisha Arnold MD : 1945 BED: DIS: 10/21/2020 SPEC #: [id number] RECD: 10/21/20 12:17 STATUS: HYACINTH RADHA #: [id number] EMMA: 10/21/20 08:[address]: Lakeisha Arnold DEPT: SURGICAL PATHOLOGY RECD BY: Tona Rahman ENTERED: 10/21/20 13:08 SP TYPE: COLON BX NAHOMI DR: DO Luciano Barcenas Tissues: Cecum, NOS Procedures: Surgery Specimen Level IV HEADER OPERATION: Colonoscopy (MAC) PRE-OP DIAGNOSIS: History of colon polyps TISSUE SUBMITTED: Cecal mass biopsy MICROSCOPIC DIAGNOSIS Cecal mass, biopsy: Hyperplastic polyp. See comment. RUY:marielle 10/22/2020 COMMENT Correlation with clinical, endoscopic findings and appropriate follow up are necessary. MICROSCOPIC DESCRIPTION Slides are reviewed. GROSS DESCRIPTION Received in fixative is one container labeled with the patient's name and designated cecal mass biopsy. The specimen consists of one irregular fragment of light felton soft tissue that measures 0.3 x 0.3 x 0.1 cm. The specimen is totally submitted in one cassette. The specimen is totally submitted in one cassette. / SJ:marielle 10/21/20 TC:5 CPT: 79906
[2020-10-21 08:39] VITALS: BP 104/61; BP 106/68; PULSE 85; RESP 18; TEMP 36.3; O2SAT 100
--- NOTE | 2020-10-21 08:41 | OP.COLON_ITS ---
Patient Name: Atif Kolb Procedure Date: 10/21/2020 8:08 AM Date of : 1945 Age: 75 Procedure: Colonoscopy Indications: High risk colon cancer surveillance: Personal history of colonic polyps Providers: Lakeisha Arnold MD Referring MD: Luciano Mcfadden Medicines: See the Anesthesia note for documentation of the administered medications Patient Profile: Refer to note in patient chart for documentation of history and physical. Last Colonoscopy: 2016. Complications: No immediate complications. Procedure: Pre-Anesthesia Assessment: - see anesthesia note After I obtained informed consent, the scope was passed under direct vision. Throughout the procedure, the patient's blood pressure, pulse, and oxygen saturations were monitored continuously. The colonoscope was introduced through the anus and advanced to the cecum, identified by the appendiceal orifice, IC valve and transillumination. The colonoscopy was performed without difficulty. The patient tolerated the procedure well. The quality of the bowel preparation was adequate to identify polyps 6 mm and larger in size. Scope In: 8:12:58 AM Scope Withdrawal Time 0 hours 13 minutes 29 seconds Scope Out: 8:33:29 AM Total Procedure Duration Time 0 hours 20 minutes 31 seconds Findings: The perianal and digital rectal examinations were normal. Non-bleeding internal hemorrhoids were found. A sessile non-obstructing small mass was found in the cecum. The mass was non-circumferential. The mass measured two cm in length. No bleeding was present. This was biopsied with a cold forceps for histology. Estimated blood loss was minimal. Impression: - Non-bleeding internal hemorrhoids. - Diverticulosis in the sigmoid colon. - Likely benign tumor in the cecum. Biopsied. - The examination was suspicious for a malignant-appearing tumor. Biopsied. Recommendation: - Discharge patient to home (ambulatory). - Resume previous diet. - Continue present medications. - Await pathology results. - Follow up visit via telemedicine with Chayo Willis PA-C to discuss results. Call to set this up, thank you - Repeat colonoscopy at the next available appointment for retreatment. Procedure Code(s): --- Professional --- 84066, Colonoscopy, flexible; with biopsy, single or multiple Diagnosis Code(s): --- Professional --- Z86.010, Personal history of colonic polyps K64.8, Other hemorrhoids D49.0, Neoplasm of unspecified behavior of digestive system K57.30, Diverticulosis of large intestine without perforation or abscess without bleeding CPT copyright 2017 [employer]. All rights reserved. The codes documented in this report are preliminary and upon hcc coders review may be revised to meet current compliance requirements. MD Lakeisha Cortez MD 10/21/2020 8:41:23 AM This report has been signed electronically. Number of Addenda: 0 Note Initiated On: 10/21/2020 8:08 AM
--- NOTE | 2020-10-21 08:42 | OP.CCLET_ITS ---
10/21/2020 Luciano Mcfadden Re : Colonoscopy procedure for Atif Kolb Dear Bogdan This procedure was performed on Wednesday, October 21, 2020. My impressions and recommendations are as follows: Impressions : - Non-bleeding internal hemorrhoids. - Diverticulosis in the sigmoid colon. - Likely benign tumor in the cecum. Biopsied. - The examination was suspicious for a malignant-appearing tumor. Biopsied. Recommendations : - Discharge patient to home (ambulatory). - Resume previous diet. - Continue present medications. - Await pathology results. - Follow up visit via telemedicine with Chayo Willis PA-C to discuss results. Call to set this up, thank you - Repeat colonoscopy at the next available appointment for retreatment. My findings are described in the full procedure note, which is enclosed. If I can be of further assistance, please feel free to contact me at Doctor phone number(s): , Work: . Sincerely, MD Lakeisha Cortez MD 10/21/2020 8:41:23 AM This report has been signed electronically.
[2020-10-21 08:45] VITALS: BP 106/68; BP 95/55; PULSE 85; RESP 16; O2SAT 100
[2020-10-21 08:50] VITALS: BP 106/68; BP 99/55; PULSE 89; RESP 16; O2SAT 100
[2020-10-21 08:55] VITALS: BP 106/68; BP 96/59; PULSE 88; RESP 16; TEMP 36.4; O2SAT 100
[2020-10-21 09:25] VITALS: BP 106/68
== END 2020-10-21 09:27 | disposition home or self-care (01) ==
LOC: EN 06:44 → AC 06:45
PROVIDERS: PCP Student in an Organized Health Care Education/Training Program; Referring Provider Student in an Organized Health Care Education/Training Program; Visit Provider Surgery
PROC: 0DJD8ZZ Inspection of Lower Intestinal Tract, Via Natural or Artificial Opening Endoscopic (ICD-10-PCS; CPT 45378; principal; 2020-10-21 07:55)
DX: Z12.11 Encounter for screening for malignant neoplasm of colon (principal); D12.0 Benign neoplasm of cecum; K64.8 Other hemorrhoids; K57.30 Diverticulosis of large intestine without perforation or abscess without bleeding; I25.10 Atherosclerotic heart disease of native coronary artery without angina pectoris; I25.2 Old myocardial infarction; E78.00 Pure hypercholesterolemia, unspecified; Z86.010 Personal history of colon polyps; Z95.5 Presence of coronary angioplasty implant and graft; Z79.82 Long term (current) use of aspirin; Z79.899 Other long term (current) drug therapy; Z87.891 Personal history of nicotine dependence
CPT/HCPCS: 45380; 88305; J7050; J7120; J2405

== ENCOUNTER → 2021-09-24 | Outpatient (CLI) | payer MEDICARE, OTHER, SELFPAY ==
[2019-07-02 13:11] VITALS: BMI 23.3
--- NOTE | 2021-09-24 13:15 | ECHOD_ITS ---
Reason For Study: CAD/ASHD Procedure This was a 2D Doppler, Color Flow transthoracic echocardiogram. The exam was of adequate technical quality. Exam performed in department. Left Ventricle Normal LV size. Segmental dysfunction with preserved ejection fraction (see wall motion). The estimated ejection fraction is 60 %. No evidence for diastolic dysfunction. Mid-inferoseptal : Hypokinetic. Mid-anteroseptal : Hypokinetic. Septal [place] : Hypokinetic. Right Ventricle Normal RV size. Normal systolic function. Atria Normal left atrium. Normal right atrium. No doppler evidence for ASD. Mitral Valve There is no mitral annular calcification. Mild mitral valve prolapse, posterior leaflet. Trivial mitral valve insufficiency. Tricuspid Valve Normal tricuspid valve. Mild tricuspid valve insufficiency. Right ventricular systolic pressure estimated to be 28 mmHg. Aortic Valve Trisinus/trileaflet aortic valve. Mild focal aortic valve calcification. Trivial aortic valve insufficiency. Pulmonic Valve The pulmonic valve is not well visualized. Mild (1+) pulmonic valve insufficiency. Great Vessels Normal sized aortic root. Pericardium/Pleural No pericardial effusion. MMode/2D Measurements & Calculations LVIDd: 4.0 cm IVSd: 0.89 cm Ao root diam: 3.2 cm LVIDs: 2.7 cm LVPWd: 0.89 cm RVDd: 3.6 cm FS: 33.5 % LAV(MOD-bp): 42.9 ml LVAd ap4: 22.5 cm2 SV(MOD-sp4): 31.9 ml LAV(MOD-bp) Indexed: 22.7 ml/m2 LVLd ap4: 7.9 cm LAV(MOD-sp2): 41.4 ml EDV(MOD-sp4): 52.7 ml LAV(MOD-sp4): 42.4 ml EDV(sp4-el): 54.5 ml LVAs ap4: 12.5 cm2 LVLs ap4: 6.4 cm ESV(MOD-sp4): 20.8 ml ESV(sp4-el): 20.7 ml EF(MOD-sp4): 60.6 % EF(sp4-el): 62.1 % SV(sp4-el): 33.8 ml LA A4 area: 17.1 cm2 LA dimension(2D): 3.3 cm RA A4 area: 14.2 cm2 Doppler Measurements & Calculations MV E max declan: 58.1 cm/sec Lat Peak E' Declan: 8.5 cm/sec Med Peak E' Declan: 7.2 cm/sec MV A max declan: 66.8 cm/sec E/E' lat: 6.8 E/E' med: 8.0 MV E/A: 0.87 Ao V2 max: 141.9 cm/sec AI max declan: 372.1 cm/sec LV V1 max: 74.7 cm/sec Ao max P.1 mmHg AI max P.6 mmHg LV V1 max P.2 mmHg Ao V2 mean: 98.9 cm/sec Ao mean P.3 mmHg AI dec slope: 136.1 cm/sec2 Ao V2 VTI: 31.6 cm AI P1/2t: 800.9 msec PA V2 max: 123.4 cm/sec TR max declan: 249.9 cm/sec TR max P.0 mmHg ECHO/Echo Complete Interpretation Summary Segmental dysfunction with preserved ejection fraction (see wall motion). The estimated ejection fraction is 60 %. Mild mitral valve prolapse, posterior leaflet Trivial mitral valve insufficiency. Mild tricuspid valve insufficiency. Mild focal aortic valve calcification. Trivial aortic valve insufficiency. Mild (1+) pulmonic valve insufficiency. Right ventricular systolic pressure estimated to be 28 mmHg. No evidence for diastolic dysfunction. Ordering Physician: Perez Cheung Referring Physician: Luciano Mcfadden Performed By: Rachel Borges, DAVID, RVT
== END | disposition home or self-care (01) ==
PROVIDERS: PCP Student in an Organized Health Care Education/Training Program; Referring Provider Internal Medicine Cardiovascular Disease; Visit Provider Internal Medicine Cardiovascular Disease
DX: I25.10 Atherosclerotic heart disease of native coronary artery without angina pectoris (principal)
CPT/HCPCS: 93306

== ENCOUNTER 2024-01-15 14:16 | Emergency (ER) | payer MEDICARE, OTHER, SELFPAY ==
[2019-07-02 13:11] VITALS: BMI 23.3
[2024-01-15 14:22] VITALS: BP 122/65; PULSE 64; RESP 18; TEMP 36.6; O2SAT 98; BMI 23.0
[2024-01-15 16:22] VITALS: BP 109/67; PULSE 82
--- NOTE | 2024-01-15 17:36 | EKG12_ITS ---
Test Reason : Blood Pressure : / mmHG Vent. Rate : 062 BPM Atrial Rate : 062 BPM P-R Int : 200 ms QRS Dur : 102 ms QT Int : 434 ms P-R-T Axes : 004 -48 -12 degrees QTc Int : 440 ms Normal sinus rhythm with sinus arrhythmia Incomplete right bundle branch block Left anterior fascicular block Abnormal ECG Confirmed by HARJIT CROOK, LUBNA ([id number]), production editor KALINA BARNES ([id number]) on 01/16/2024 8:01:43 AM Referred By: Confirmed By:LUBNA LOMBARDI MD
--- NOTE | 2024-01-15 17:36 | CT_ITS ---
STUDY: CT BRAIN WITHOUT CONTRAST REASON FOR EXAM: Male, 79 years old. Headache, vertigo RADIATION DOSAGE (If Supplied By Facility): CTDIvol = ( 44.99 ) mGy, DLP = ( 829.85 ) mGycm TECHNIQUE: Transaxial CT imaging of the brain was performed without administration of intravenous contrast material. Individualized dose optimization techniques were used for this CT. COMPARISON: No relevant priors. FINDINGS: Normal soft tissue structures. Normal calvarium. Normal size ventricles and extra-axial spaces for the patient''s age. Normal white matter tracts of the cerebral hemispheres. There are small punctate calcifications of the basal ganglia which are seen in the aging brain as a normal variant. Normal brainstem. Normal cerebellum. There is no intracranial hemorrhage. There are no findings of an acute ischemic infarction. Normal visualized paranasal sinuses. CT/Brain/Head without Contrast IMPRESSION: Normal unenhanced CT scan of the brain. Electronically Signed: Billy Somers MD at 20:03 EDT ,
[2024-01-15] MEDS: Meclizine HCl 25 MG Tablet PO (17:45)
[2024-01-15 18:00] VITALS: BP 120/73; PULSE 64
[2024-01-15 18:01] LABS: Bacteria 0 SEEN /hpf (None Seen); Mucous, Urine 0 SEEN /hpf (<or=2+); Red Blood Cells-Urine 0 SEEN /hpf (0-5)
--- NOTE | 2024-01-15 18:05 | EDS_ITS ---
HPI History of Present Illness Chief Complaint: Confusion Narrative Narrative: Patient is 79-year-old male with history of coronary artery disease status post stent placement, hyperlipidemia and seasonal allergies presenting with dizziness and fogginess. Patient states he just has not felt well for the past 3 to 4 days. States he just felt off. He states stomachs been off and he has had decreased appetite. Today he was puttering around in the yard . He cleaned the porch and then afterwards was trimming the hospice. He then suddenly felt dizzy and describes as a room spinning sensation. He states he felt weak. He went to take a shower and after taking a shower he threw up. He notes that is very unusual for him. He is not sure if he threw up because he was nauseous or because he was so dizzy. He notes that he has been sleeping more the past few days. He has felt a little short of breath but feels that it is more from him just being weak. He also reports headache which is in his forehead and then goes up to the top of his head. Denies any head injuries or traumas. He notes his dizziness is worse with movement of his head. Denies any history of vertigo. Denies any associated ringing in his ears, nasal congestion, fever, sore throat, ear pain, chest pain or shortness of breath. Denies abdominal pain or diarrhea. Denies any melena. Denies any swelling of his legs. Initially went to urgent care but was told because of his history of heart attack he should come to the emergency room. [facility] Medical History Presence of stent in coronary artery (~07/02/19) Wears hearing aid Wears glasses High cholesterol Former smoker History of echocardiogram Cardiology follow-up encounter Atherosclerotic heart disease of [place] coronary artery without angina pectoris HLD (hyperlipidemia) NSTEMI (non-ST elevated myocardial infarction) Acute coronary syndrome Seasonal allergies Hyperlipidemia Home Medications ?Medication ?Instructions ?Recorded ?Last Taken ?Type mometasone 50 mcg/actuation nasal 2 spray NASAL DAILY 07/02/19 Unknown History spray aspirin 81 mg tablet,delayed 81 mg PO DAILY@0800 07/04/19 Unknown Rx release sertraline 25 mg tablet 25 mg PO DAILY 09/09/21 Unknown History atorvastatin 80 mg tablet 80 mg PO QHS #90 tabs 07/10/23 Unknown Rx carvedilol 3.125 mg tablet 3.125 mg PO BID #180 tabs 07/27/23 Unknown Rx meclizine 25 mg tablet 25 mg PO 4X/DAY PRN PRN Dizziness 01/15/24 Unknown Rx #20 tabs Allergy/AdvReac Type Severity Reaction Status Date / Time amoxicillin Allergy Rash Verified 01/15/24 14:26 Family History Father Cancer esophagus Mother Cancer esophagus Surgical History Presence of coronary angioplasty implant and graft (~07/02/19) History of cardiac catheterization Social History Smoking Status: Former smoker ROS ROS ED Constitutional Constitutional ED: Reports other Details: Decreased appetite, generalized malaise and fatigue ; Denies chills, fever(s) or sweats Eyes Eyes: Denies blurry vision or change in vision ENT ENT ED: Denies ear pain, rhinorrhea or sore throat Cardiovascular Cardiovascular: Denies chest pain Respiratory/Chest Respiratory/Chest: Reports dyspnea on exertion; Denies cough or dyspnea Gastrointestinal Gastrointestinal: Reports nausea and vomiting; Denies abdominal pain or diarrhea Musculoskeletal Musculoskeletal: Denies arthralgias or myalgias Integumentary Denies rash Neurologic Neurologic: Reports headache(s) and other Details: Generalized weakness, vertigo ; Denies paresthesias or weakness Hematologic/Lymphatic Hematologic/Lymphatic: Denies easy bleeding or easy bruising EXAM Physical Exam Const Vital Signs: 01/15/24 14:22 01/15/24 16:22 01/15/24 18:00 Temperature 97.8 F Temperature Source Temporal Pulse Rate 64 82 64 Respiratory Rate 18 Blood Pressure 122/65 H 109/67 120/73 Blood Pressure Mean 84 81 88 Pulse Ox 98 Oxygen Delivery Method Room Air 01/15/24 20:00 Temperature Temperature Source Pulse Rate 67 Respiratory Rate 20 H Blood Pressure 128/75 H Blood Pressure Mean 92 Pulse Ox 98 Oxygen Delivery Method Room Air Positive well nourished and well developed General Appearance ED: well developed and NAD HEENT Reports moist mucous membranes HEENT Narrative: Normal oropharynx Negative for trauma Eyes PERRL and EOMs intact bilaterally Eyes Narrative: Horizontal nystagmus that is fatiguing. On [place]-Hallpike maneuver patient has bilateral reproduction for gentle nystagmus but only on the left does not reproduce his symptoms. No vertical nystagmus appreciated. Neck supple Chest Wall inspection of chest normal and palpation of chest normal Resp normal respiratory effort and clear to auscultation bilaterally Cardio regular rate, regular rhythm and no murmurs GI normal to inspection, nondistended, normoactive bowel sounds and non-tender Extremity normal to inspection General Extremety ED: Negative for edema General Extremity: Negative for edema Neuro oriented x3, CN's II-XII intact bilaterally and no sensory deficits noted Neuro Narrative: Normal finger-nose, no truncal ataxia. No normal [id number] Sensorium / Orientation: alert Motor Exam: strength 5/5 throughout; Negative for general weakness Psych mental status grossly normal Skin no rashes or lesions noted and no wounds MDM MDM MDM Narrative Medical decision making narrative: Patient is evaluated for generalized malaise for 3 to 4 days of vertigo that started today. He also has a mild headache that seems to more of a tension/sinus headache. On exam he is a positive [place]-Hallpike maneuver on the left. Will give meclizine. Given his age and history of ACS will also obtain basic labs including a CT of the brain to ensure there is no space-occupying lesion or large fluid collection/bleed and EKG. Workup largely negative. No signs of infection, ACS with a normal high- sensitivity troponin and EKG, normal electrolytes. Urinalysis is Nexis of infection. CT of the brain does not show any acute process and chest x-ray viewed by myself as well as radiology does not show any acute process. Patient given a dose of meclizine in the ER with improvement of symptoms. Given negative workup and physical exam with left-sided as well as recent URI symptoms I do not think requires MRI or CTA of the head neck for further posterior circulation workup. Discussed using Flonase which his PCP had previously prescribed as well as a short course of Afrin (extensively discussed how he should not use it for more than 3 days) in addition to meclizine prescription. Will be given ENT referral as he may require vestibular therapy if symptoms not improvement throughout. Patient verbalized agreement to this plan. Discharged home in stable improved condition. Given return precautions to the emergency room Lab Data Attestation: I reviewed the patient's lab results. Labs: Laboratory Results - last 24 hr 01/15/24 01/15/24 17:35 17:44 WBC 7.4 RBC 4.61 Hgb 14.2 Hct 43.4 MCV 94.1 H MCH 30.8 MCHC 32.7 RDW Std Deviation 43.6 RDW Coeff of Felicity 12.7 Plt Count 158 MPV 9.9 Immature Gran % (Auto) 0.100 Neut % (Auto) 76.4 H Lymph % (Auto) 15.9 L Randall % (Auto) 5.0 Eos % (Auto) 2.2 Baso % (Auto) 0.4 Absolute Neuts (auto) 5.6 Absolute Lymphs (auto) 1.17 Nucleated RBC % 0 Sodium 140 Potassium 4.1 Chloride 108 H Carbon Dioxide 26.0 Anion Gap 6 BUN 14 Creatinine 0.81 Estim Creat Clear Calc 75.72 Est GFR (MDRD) Af Amer 118 Est GFR (MDRD) Non-Af 98 BUN/Creatinine Ratio 17.3 Glucose 106 Calcium 8.7 Total Bilirubin 0.80 AST 27 ALT 38 Alkaline Phosphatase 71 Troponin I High Sens 8 Total Protein 7.3 Albumin 3.6 Globulin 3.7 Albumin/Globulin Ratio 1.0 Lipase 40 Urine Color Yellow Urine Clarity Clear Urine pH 6.5 Ur Specific [place] 1.015 Urine Protein 15 H Urine Glucose (UA) Normal Urine Ketones Negative Urine Occult Blood Negative Urine Nitrite Negative Urine Bilirubin Negative Urine Urobilinogen Normal Ur Leukocyte Esterase Negative Urine RBC 0 SEEN Urine WBC 0-5 SEEN Ur Squamous Epith Cells 0-5 SEEN Amorphous Sediment 2+ Urine Bacteria 0 SEEN Urine Mucus 0 SEEN Radiography Diagnostic Testing: Clinical Impression(s) from Imaging Studies Brain CT 01/15/24 17:36 IMPRESSION: Normal unenhanced CT scan of the brain. Electronically Signed: Billy Somers MD at 20:03 EDT , Chest X-Ray 01/15/24 18:07 IMPRESSION: Degenerative changes, as described above. No demonstrated acute cardiopulmonary process. Electronically Signed: Billy Somers MD at 20:07 EDT Reading Location ID and State: [facility] / [place] , Service support , Rhythm Strip Rhythm Strip: Sinus Rhythm Rate: 62 Ectopy: None EKG Initial EKG: Attestation: I personally reviewed and interpreted this EKG as follows: Interpretation: Sinus Rhythm Comments: Normal sinus rhythm with sinus arrhythmia rate of 62 bpm Incomplete right bundle branch block with left anterior fascicular block Normal axis Normal ST segments Compared to prior EKG on 07/04/2019 patient no longer has deep T wave inversions in the septal leads Discharge Plan Triage Chief Complaint: Confusion ED Provider: Joi Poole Dx/Rx/DC Orders Clinical Impression: Benign paroxysmal positional vertigo of left ear, Acute viral syndrome Instructions: ED BPV Vertigo, ED Viral Syndrome (Adult) Prescriptions: New meclizine 25 mg tablet 25 mg PO 4X/DAY PRN PRN (Reason: Dizziness) Qty: 20 0RF No Action sertraline 25 mg tablet 25 mg PO DAILY mometasone 1 SPRAY spray,non-aerosol 2 spray NASAL DAILY aspirin 81 MG tablet 81 mg PO DAILY@0800 0RF atorvastatin 80 mg tablet 80 mg PO QHS Qty: 90 3RF carvedilol 3.125 mg tablet 3.125 mg PO BID Qty: 180 3RF Primary Care Provider: Luciano Mcfadden Referrals: Nain Becker MD [Med Staff - Active Staff] - 1-2 Days if not improving Luciano Mcfadden OLS [[facility]] - Activity Restrictions/Additional Instructions: I recommend using [id number] Afrin to help with your congestion and any ear pressure. Do not use it more than 3 days in a row. Continue to use nasal spray steroid as previously prescribed. Print Language: [place] Disposition Disposition: Home, Self Care
--- NOTE | 2024-01-15 18:07 | RAD_ITS ---
STUDY: X-RAY CHEST REASON FOR EXAM: Male, 79 years old. Dizziness, fatigue TECHNIQUE: PA and lateral views of the chest. COMPARISON: July 03, 2019 FINDINGS: There are monitoring devices. There are interstitial fibrotic changes of the lungs. There is no demonstrated pleural abnormality. There is mild cardiac enlargement. There are coronary endovascular stents. Normal mediastinum and belkys. Normal visualized pulmonary arteries. Normal visualized aortic arch and descending thoracic aorta. There is compression fracture of the lower thoracic spine. Normal visualized ribs, clavicles, and shoulders. There is no demonstrated abnormality of the visualized soft tissue structures of the upper abdomen. RAD/Chest PA and Lateral IMPRESSION: Degenerative changes, as described above. No demonstrated acute cardiopulmonary process. Electronically Signed: Billy Somers MD at 20:07 EDT ,
[2024-01-15 18:09] LABS: Color, Urine Yellow (Yellow); Glucose, Dipstick Normal (Normal); Ketone-Dipstick Negative (Negative); Leukocyte Esterase-Dipstick Negative /ul (Negative); Nitrite-Dipstick Negative (Negative); Occult Blood-Urine Negative /ul (Negative); Protein-Dipstick 15 mg/dl (Negative); Specific Gravity, Urine 1.015 (1.002-1.030); Urine Bilirubin Dipstick Negative (Negative); Urine Clarity Clear (Clear); Urine Urobilinogen Normal (Normal); Urine pH 6.5 (5.0 - 8.0)
[2024-01-15 18:16] LABS: Absolute Lymphocyte Count 1.17 X10^3/uL (0.83-4.51); Absolute Neutrophil Count 5.6 X10^3/uL (2.0-7.7); Basophil# 0.03 X10^3/uL; Basophil% 0.4 % (0-1); Eosinophil# 0.16 X10^3/uL; Eosinophils% 2.2 % (0-5); Hematocrit 43.4 % (40-54); Hemoglobin 14.2 g/dL (13.0-16.5); Lymphocyte # 1.17 X10^3/ul (0.83-4.51); Lymphocyte % 15.9 % (19-41); Mean Corp Hgb Conc 32.7 g/dL (32-36); Mean Corpuscular Hgb 30.8 pg (27.0-32.0); Mean Corpuscular Volume 94.1 fL (80-94); Mean Platelet Vol. 9.9 fl (6.2-12.0); Monocyte# 0.37 X10^3/uL; NRBC Flagged by Analyzer 0 % (0-5); Neutrophil # 5.64 X10^3/uL (2.7-7.7); Neutrophil % 76.4 % (47-70); Platelet Count 158 K/mm3 (150-450); RBC Distribution Width CV 12.7 % (11.6-14.6); RBC Distribution Width SD 43.6 fl (35.1-43.9); Red Blood Count 4.61 M/mm3 (4.6-6.2); White Blood Count 7.4 K/mm3 (4.4-11.0)
[2024-01-15 18:25] LABS: AST(SGOT) 27 U/L (15-37); Alanine Aminotransfer ALT/SGPT 38 U/L (16-61); Albumin, Serum 3.6 g/dL (3.2-5.0); Alkaline Phosphatase 71 U/L (45-117); Anion Gap 6 (5-15); BUN 14 mg/dL (7-18); BUN/Creat Ratio 17.3 RATIO (10-20); Calcium,Total 8.7 mg/dL (8.5-10.1); Chloride 108 mmol/L (98-107); Creatinine, Serum 0.81 mg/dL (0.70-1.30); EST Glomerular Filtration Rate 98 mL/min (>60); Est Glom Filt Rate - Afr Amer 118 mL/min (>60); Estimated Creatinine Clearance 75.72 ml/min; Globulin 3.7 g/dL (2.2-4.2); Glucose 106 mg/dL (74-106); Lipase 40 U/L (13-75); Potassium 4.1 mmol/L (3.5-5.1); Protein, Total 7.3 g/dL (6.4-8.2); Sodium Level 140 mmol/L (136-145); Troponin-I HS 8 pg/mL (3.0-78.0)
[2024-01-15 18:30] LABS: Squamous Epithelial Cells - UA 0-5 SEEN /hpf (0-5); White Blood Cells 0-5 SEEN /hpf (0-5)
[2024-01-15 18:31] LABS: Amorphous Sediment 2+
[2024-01-15 20:00] VITALS: BP 128/75; PULSE 67; RESP 20; O2SAT 98
[2024-01-15 21:07] VITALS: BP 147/109; PULSE 66; RESP 20; TEMP 36.8; O2SAT 97
== END 2024-01-15 21:28 | disposition home or self-care (01) ==
PROVIDERS: Emergency Provider Emergency Medicine; PCP Student in an Organized Health Care Education/Training Program; Visit Provider Emergency Medicine
DX: H81.12 Benign paroxysmal vertigo, left ear (principal); B34.9 Viral infection, unspecified; I25.10 Atherosclerotic heart disease of native coronary artery without angina pectoris; I25.2 Old myocardial infarction; E78.00 Pure hypercholesterolemia, unspecified; Z95.5 Presence of coronary angioplasty implant and graft; Z79.82 Long term (current) use of aspirin; Z79.899 Other long term (current) drug therapy; Z87.891 Personal history of nicotine dependence
CPT/HCPCS: 70450; 71046; 80053; 81001; 83690; 84484; 85025; 93005; 99284